=== PATIENT | female | born 1960 | race Two or more races ===

== ENCOUNTER 2017-04-21 16:18 | Emergency (ER) | payer OTHER ==
--- NOTE | 2017-04-21 17:59 | PHYS DOC ---
Past Medical History Past Medical History: Seizure Past Surgical History: Cholecystectomy, Hysterectomy, Tubal ligation Alcohol Use: Rarely Drug Use: None Adult General Chief Complaint Chief Complaint: HIP PAIN HPI HPI Patient is a 57 year old F who presents with left hip pain. Patient had a seizure today with a known history of epilepsy and fell out of the recliner chair while having the seizure. Patient states she has left hip pain secondary to that. Patient states that it is extremely painful to walk on. Patient sustained no other injuries. Patient only came the emergency room for the hip pain and Cipro for her to have seizures. Patient denies any other trauma. Review of Systems Review of Systems GEN: Denies fevers, chills, sweats HEENT: Denies blurred vision, sore throat CV: Denies chest pain RESP: Denies shortness of air, cough GI: Denies n/v/d NEURO: Denies confusion, dizziness MSK: Left hip pain Current Medications Current Medications Current Medications Medications (Trade) Dose Ordered Sig/Kolby Start Time Stop Time Status Last Admin Dose Admin Ibuprofen (Motrin) 800 mg 1X ONCE 04/21/17 18:45 04/21/17 18:46 DC 04/21/17 18:50 800 MG Allergies Allergies Allergies Coded Allergies Type Severity Reaction Last Updated Verified No Known Drug Allergies 04/21/17 No Physical Exam Physical Exam GEN.: No apparent distress. Alert and oriented. HEENT: Head is normocephalic, atraumatic NECK: Supple. LUNGS: CTAB. HEART: RRR, S1, S2 present. Peripheral pulses intact ABDOMEN: Soft, nontender. Positive bowel sounds. EXTREMITIES: Without any cyanosis. Tenderness palpation to the left hip with decreased range of motion secondary to pain no obvious deformity palpated NEUROLOGIC: Normal speech, normal tone PSYCHIATRIC: Normal affect, normal mood. SKIN: No ulcerations Current Patient Data Vital Signs Vital Signs Date Time Temp Pulse Resp B/P (MAP) Pulse Ox O2 Delivery O2 Flow Rate FiO2 04/21/17 18:24 81 126/71 (89) 97 Room Air 04/21/17 17:27 98.4 18 98.4 EKG EKG [] Radiology/Procedures Radiology/Procedures X-ray left hip no obvious fracture[] CT scan of the pelvis shows no acute fracture Course & Med Decision Making Course & Med Decision Making Pertinent Labs and Imaging studies reviewed. (See chart for details) Patient was seen and evaluated emergency x-ray of the pelvis was ordered X-ray of the pelvis was negative therefore a CT scan was ordered 2020: Patient states she can bear weight however it's painful and was updated on CT findings. Patient would like to go home does not feel she needs to be admitted to the hospital. Recommended 800 mg Motrin as needed for pain. MDM: After reviewing the chart, CC/HPI/PMH, physical exam, [radiological results], I do not believe the patient has a significant injury to her right hip warranting further workup and/or admission at this time. Patient stable for discharge. Patient does not want to be admitted hospital for pain management and feels like she wants to go home. Additional verbal discharge instructions were provided to the patient and that if symptoms get worse or any new symptoms arise that are worrisome to the patient she is to return to the emergency room immediately [] Dragon Disclaimer Dragon Disclaimer This electronic medical record was generated, in whole or in part, using a voice recognition dictation system. Departure Departure Impression: Primary Impression: Left hip pain Disposition: 01 HOME, SELF-CARE Condition: STABLE Referrals: MARIELA WHALEY MD (PCP) Patient Instructions: Hip Pain Additional Instructions: Please follow up with your family doctor next one to 2 days Scripts Ibuprofen (IBUPROFEN) 800 Mg Tablet 800 MG PO PRN Q8HRS Y for INFLAMMATION for 10 Days, #40 TAB Prov: XIANG MORENO DO 04/21/17 XIANG MORENO DO Apr 21, 2017 17:59
--- NOTE | 2017-04-21 18:38 | RAD ---
CT scan of pelvis without contrast 04/21/2017 CLINICAL HISTORY: Left hip pain post fall. TECHNIQUE: Unenhanced, contiguous, 0.625 mm axial sections were obtained through the pelvis to include both hips. 3 mm reconstructed sagittal and axial and coronal images were obtained. One or more of the following individualized dose reduction techniques were utilized for this study: 1. Automated exposure control. 2. Adjustment of the mA and/or kV according to patient size. 3. Use of iterative reconstruction technique. FINDINGS: No pelvic bone fracture is seen. Both hips are intact. Degenerative changes are seen involving the facet joints of the lower lumbar spine. Mild degenerative changes are seen involving both SI joints and both hips. Calcifications are seen within the pelvis consistent with phleboliths. No pelvic hematoma is seen. No free fluid is noted. IMPRESSION: No acute abnormality is seen. Electronically signed by: Jerad Brown MD (04/21/2017 6:35 PM) [facility]
[2017-04-21] MEDS ORDERED: IBUPROFEN 800 MG TABLET. PO ONE (18:45)
[2017-04-21 20:24] VITALS: BP 148/73
[2017-04-21] MEDS ORDERED: IBUP-1060 PO (20:30)
--- NOTE | 2017-04-22 10:38 | RAD ---
AP pelvis to include AP and lateral radiographs of the left hip 04/21/2017 Clinical history: Fall with left pelvic and hip pain. An AP digital radiograph of the pelvis to include both hips was obtained. AP and lateral digital radiographs of the left hip were obtained. No pelvic bone fracture is seen. Both hips are intact. Specifically no fracture or dislocation of the left hip is seen. Calcifications are seen within the pelvis consistent with phleboliths. Impression: No fracture or dislocation is seen.
[2017-04-22] MEDS ORDERED: CELE200C PO (15:23)
[2017-04-22] MEDS ORDERED: ACET500T68 PO (15:24)
[2017-04-22] MEDS ORDERED: ALEN70TA3 PO (15:29)
[2017-04-22] MEDS ORDERED: ATOR10TA60 PO (15:30)
[2017-04-22] MEDS ORDERED: PHEN200C PO (15:35)
[2017-04-25] MEDS ORDERED: HYDR-2762 PO (12:24)
[2017-04-25] MEDS ORDERED: POLY17PO3 PO (12:24)
[2017-04-25] MEDS ORDERED: METH500T7 PO (12:24)
[2017-04-25] MEDS ORDERED: PHEN100C PO (12:24)
== END 2017-04-21 20:50 | disposition home or self-care (01) ==
LOC: ER 16:18
DX: M25.552 Pain in left hip (principal); G40.909 Epilepsy, unspecified, not intractable, without status epilepticus; Z90.49 Acquired absence of other specified parts of digestive tract; Z90.710 Acquired absence of both cervix and uterus
CPT/HCPCS: 72192; 73502; 99284-25

== ENCOUNTER 2017-04-22 14:32 | Inpatient (IN) | payer OTHER ==
[~2017-04-22] VITALS: Ht 165.1 cm; Wt 80.7 kg
[~2017-04-22 14:32] MED LIST: IBUP-1060 PO
[2017-04-22 15:00] VITALS: BP 135/77
[2017-04-22] MEDS ORDERED: CELE200C PO (15:23)
[2017-04-22] MEDS ORDERED: ACET500T68 PO (15:24)
[2017-04-22] MEDS ORDERED: ALEN70TA3 PO (15:29)
[2017-04-22] MEDS ORDERED: ATOR10TA60 PO (15:30)
[2017-04-22] MEDS ORDERED: PHEN200C PO (15:35)
[2017-04-22] MEDS: HYDROcodone/APAP 7.5/325MG 1 TAB TABLET PO PRN ×2 (15:58→20:36)
[2017-04-22] MEDS: METHOCARBAMOL 500 MG TABLET PO PRN (18:39)
[2017-04-22 19:00] VITALS: BP 139/70
[2017-04-22 19:43] VITALS: BP 135/77
[2017-04-22] MEDS: ATORVASTATIN CALCIUM 10 MG TABLET. PO SCH (20:35)
[2017-04-22] MEDS: CELECOXIB 200 MG CAPSULE. PO SCH (20:35)
[2017-04-22 23:00] VITALS: BP 140/70
[2017-04-23 03:00] VITALS: BP 111/56
[2017-04-23 07:00] VITALS: BP 122/72
[2017-04-23] MEDS: HYDROcodone/APAP 7.5/325MG 1 TAB TABLET PO PRN ×4 (08:57→21:04)
[2017-04-23] MEDS: PHENYTOIN SODIUM EXTENDED 100 MG CAPSULE PO SCH (08:58)
[2017-04-23] MEDS: CELECOXIB 200 MG CAPSULE. PO SCH ×2 (08:58→21:03)
[2017-04-23 11:00] VITALS: BP 130/61
[2017-04-23] MEDS: METHOCARBAMOL 500 MG TABLET PO PRN ×2 (12:22→16:32)
[2017-04-23 14:51] LABS: BASO # 0.2 x10^3/uL (0.0-0.2); BASO % 1 % (0-3); EOS % 1 % (0-3); HEMATOCRIT 43.2 % (36.0-47.0); HEMOGLOBIN 14.6 g/dL (12.0-15.5); LYMPH # 33.6 x10^3/uL (1.0-4.8); LYMPH % 79 % (24-48); MEAN CORPUSCULAR HEMOGLOBIN 30 pg (25-35); MEAN CORPUSCULAR HGB CONC 34 g/dL (31-37); MEAN CORPUSCULAR VOLUME 90 fL (79-100); MONO % 4 % (0-9); NEUT % 16 % (31-73); PLATELET COUNT 220 x10^3/uL (140-400); RED CELL DISTRIBUTION WIDTH 13.8 % (11.5-14.5)
[2017-04-23 14:56] LABS: WHITE BLOOD COUNT 42.6 x10^3/uL (4.0-11.0)
[2017-04-23 15:06] VITALS: BP 117/74
[2017-04-23 15:08] LABS: ALBUMIN 3.7 g/dL (3.4-5.0); CALCIUM 8.8 mg/dL (8.5-10.1); CREATININE 0.8 mg/dL (0.6-1.0); GFR 73.9; POTASSIUM 3.8 mmol/L (3.5-5.1); TOTAL BILIRUBIN 0.3 mg/dL (0.2-1.0); TOTAL PROTEIN 7.3 g/dL (6.4-8.2)
--- NOTE | 2017-04-23 15:09 | PDOC2 ---
CONSULT Date of Consult Date of Consult DATE: 04/23/17 TIME: 14:51 Reason for Consult Reason for Consult: left hip pain Identification/Chief Complaint Chief Complaint left hip pain Problems: Source Source: Chart review, Patient History of Present Illness Reason for Visit: Ms. Dowell is a 57 year old patient admitted with left hip pain. She has a history of epilepsy and states she has been seizure-free for seven years until when she had a seizure. She states her daughter witnessed the seizure and states she did not fall or hit anything while seizing, but did seize for a total of 30 minutes. Her daughter described her seizure activity of being stiff as a board. She thinks this seizure was brought on by stress. Her left hip has been painful since the seizure, but pain is slowly improving. She is now able to ambulate with mild pain. 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 Past Medical History Cardiovascular: Hyperlipidemia CENTRAL NERVOUS SYSTEM: Seizure Past Surgical History Past Surgical History right breast mass removal x3 - benign Past Surgical History: Cholecystectomy, Tubal Ligation, Hysterectomy Family History Family History: Cancer, Diabetes, High Cholestrol, Hypertension Social History Quit (2006) ALCOHOL: none Drugs: None Lives: Alone (but states she will be moving in with her daughter soon) Current Medications Current Medications Current Medications Acetaminophen/ Hydrocodone Bitart (Lortab 7.5/325) 1 tab PRN Q4HRS PRN PO PAIN Last administered on 04/23/17 08:57; Start 04/22/17 at 15:30 Acetaminophen/ Hydrocodone Bitart (Lortab 7.5/325) 2 tab PRN Q4HRS PRN PO PAIN Last administered on 04/23/17 12:22; Start 04/22/17 at 15:30 Methocarbamol (Robaxin) 500 mg PRN TID PRN PO MUSCLE SPASMS Last administered on 04/23/17 12:22; Start 04/22/17 at 15:30 Atorvastatin Calcium (Lipitor) 10 mg HS PO Last administered on 04/22/17 20:35 ; Start 04/22/17 at 21:00 Celecoxib (CeleBREX) 200 mg BID PO Last administered on 04/23/17 08:58; Start 04/22/17 at 21:00 Phenytoin Sodium (Dilantin) 400 mg DAILY@1000 PO Last administered on t 08:58; Start 04/23/17 at 10:00 Active Scripts Active Ibuprofen 800 Mg Tablet 800 Mg PO PRN Q8HRS PRN 10 Days Reported Phenytek (Phenytoin Sodium Extended) 200 Mg Capsule 400 Mg PO DAILY10 Atorvastatin Calcium 10 Mg Tablet 10 Mg PO HS Fosamax (Alendronate Sodium) 70 Mg Tablet 1 Tab PO WEEKLY Acetaminophen 500 Mg Tablet 3 Tab PO Q4HRS Celebrex (Celecoxib) 200 Mg Capsule 200 Mg PO BID 30 Days Allergies Allergies: Coded Allergies: No Known Drug Allergies (Unverified , 04/21/17) Physical Exam General: Alert, Oriented X3, Cooperative, No acute distress HEENT: Atraumatic, EOMI Lungs: Normal air movement Heart: Regular rate Abdomen: Soft Extremities: No clubbing, No cyanosis, No edema, Normal pulses Skin: No rashes, No breakdown, No significant lesion Neuro: Normal speech, Sensation intact Psych/Mental Status: Mental status NL, Mood NL MUSCULOSKELETAL: Other (Upon inspection of left hip, there are no masses, skin lesions, or ecchymosis. There is tenderness to palpation over left gluteus philippe. No tenderenss over greater trochanter. No tenderness of lumbar spine. The left hip shows full active range of motion. There is mild pain more so with internal rotation than extenal rotation of the hip. Strength intact. Good dorsiflexion and plantarflexion with no evidence of neurovascular injury. Calf soft and nontender with negative Suki's sign. Peripheral pulses and light touch sensation intact. Neurovascularly intact. ) Vitals VITALS Vital Signs Date Time Temp Pulse Resp B/P (MAP) Pulse Ox O2 Delivery O2 Flow Rate FiO2 04/23/17 12:22 Room Air 04/23/17 11:00 98.1 58 18 130/61 (84) 95 98.1 Images Images Hip x-rays and CT were reviewed. There is no fracture or acute abnormality detected. Mild degenerative changes are seen of both hips and lower lumbar spine. Assessment/Plan Assessment/Plan I explained the seizure could have caused a muscle strain versus a flare of the hip osteoarthritis. Since hip pain is improving and she can now ambulate with minimal pain, suspicion of occult femoral neck fracture is very low. I recommended alternating heat/cold packs and physical therapy for strengthening. I explained Dr. Webster doesn't typically treat hips and recommended she followup with Dr. Bunch, who she is familiar with, outpatient for further followup of the left hip. Dr. Webster reviewed the patient's x-rays, CT, and chart and agrees with this plan. ASHLEY TORRES Apr 23, 2017 15:09
--- NOTE | 2017-04-23 15:29 | HP ---
ADMIT DATE: 04/22/2017 DATE OF SERVICE: 04/22/2017 CHIEF COMPLAINT: Hip pain. HISTORY OF PRESENT ILLNESS AND HOSPITAL COURSE: This patient is a 57-year-old female who has underlying seizure disorder, had a significant seizure 48 hours prior to admission. She came to the Emergency Room, was found to be stable, but having ongoing hip pain and having difficulty walking and caring for herself. She does live alone and admission was offered, but the patient declined and she was discharged to home for outpatient followup. Despite attempts to care for herself at home, she was unable to ambulate well and get from her bed to the bathroom safely and was having ongoing pain. Therefore, she was directly admitted to the hospital for further evaluation. The patient also related history that she had not had a seizure for over 7 years and is taking her seizure medication regularly. No Dilantin levels or labs were drawn on initial Emergency Room evaluation, they will be evaluated during hospital stay and Neurology consultation will be obtained. PAST MEDICAL HISTORY: Significant for: 1. Seizure disorder. 2. Polk palsy. 3. Hyperlipidemia. 4. Thyroiditis. 5. Osteopenia. PAST SURGICAL HISTORY: Significant for cholecystectomy, tubal ligation, partial hysterectomy and bladder mesh surgery. FAMILY HISTORY: The patient's mother is alive without significant medical issues. Father is alive and living with prostate cancer. She has a brother with heart disease. SOCIAL HISTORY: The patient is a former smoker that quit 15 years ago. The patient does not use alcohol. She is and single and lives alone, but has excellent support from her daughter. REVIEW OF SYSTEMS: The patient was in usual state of health until seizure, which apparently lasted approximately 30 minutes according to daughter, at which time they came directly to the Emergency Room. The patient's initial x-rays in the Emergency Room were negative including CAT scan of the pelvis as well as plain x-rays of the pelvis and hips. PHYSICAL EXAMINATION: GENERAL: This is a well-nourished, well-developed female in no apparent distress on my initial exam. HEENT: Benign. NECK: Supple, without JVD or bruit. CARDIAC: Regular rate and rhythm. LUNGS: Clear. ABDOMEN: Soft, nontender. EXTREMITIES: 2+ pulses without edema. NEUROLOGIC: Showed no unilateral findings. The patient had extreme difficulty getting out of chair and walking due to ongoing hip pain. ASSESSMENT: 1. Recurrent/primary seizure. 2. Severe hip strain and mobility deficit. 3. Underlying seizure disorder. PLAN: To proceed with PT and OT modalities, consult Physical Medicine for rehabilitation and consult Neurology for evaluation of new onset seizure. DEBBIE DUBOIS MD DR: SHE/edwin JOB#: [id number] / [id number]
[2017-04-23 17:03] LABS: % BLASTS 1 % (0-0); % EOS 4 % (0-5); PLT ESTIMATE ADEQUATE (ADEQUATE)
--- NOTE | 2017-04-23 17:16 | PDOC2 ---
NEUROLOGY CONSULT Date of Admission Date of Admission DATE: 04/23/17 TIME: 17:03 Reason for Consult Reason for Consult: IMPRESSION: Seizure. Leukocytosis, WBC 42.6, Lymph 78% HLD Thyroiditis, Hx Obesity RECOMMENDATIONS/PLAN: EEG Continue Dilantin 400 daily, check trough level. Treat medical diseases. Please consult hematology for elevated lymph counts. HISTORY OF THE PRESENT ILLNESS: 57-y-old female patient with HJx of seizure since age 16. She stated that she usually had a seizure every 2 to 3 months in the past described as GTC. She was treated with Dilantin and PB for several years then discontinued medical for a while. She has been taken Dilantin as monotherapy in the past 10 years and no seizures in the past 7 years. She said she has been under a lot of emotional stress selling her house, moving etc. She had a seizure described as LOC with shaking movements and [postictal state for about 30 minutes on 04/22/17 to be brought to [facility]. No seizures since in the hospital. She stated she bit her tongue , but no loss of control of urinary bladder. Past Medical History Cardiovascular: Hyperlipidemia CENTRAL NERVOUS SYSTEM: Seizure Past Surgical History right breast mass removal x3 - benign Past Surgical History: Cholecystectomy, Tubal Ligation, Hysterectomy Family History Cancer, Diabetes, HLD, Hypertension Social History Quit (2006) ALCOHOL: none Drugs: None Lives: but . Alone (but states she will be moving in with her daughter soon) ALLERGY: Reviewed. MEDICATIONS: Refer to [facility] REVIEW OF SYSTEMS: Constitutional: Obesity. Head: No traumatic brain or head injury. Skin: No edema, or rash. Ear: No infection. Eyes: No vision loss or color blindness. Nose: No bleeding or purulent discharges. Hearing: No hearing decrease. Neck: No injury. Breast: No history of cancer, masses,or discharges. Cardiac: HLD. Pulmonary: No COPD. GI: No GI ulcer, GI bleeding. Urinary/genital: UTI. Endocrinologic: Thyroiditis, obesity Skeletomuscular: No muscular atrophy, deformity Neurological: see HP. Psychiatric: Denies drug use/abuse. Otherwise, not -zawkw review of systems. PHYSICAL EXAMINATION: General appearance is in no acute distress. HEENT: Normocephalic and nontraumatic. Eyes, nose, ears, and throat are unremarkable. Neck is supple. No lymphadenopathy. No bruits are heard over the carotid artery. No crepitus. Cardiovascular: S1, S2, regular rate and rhythm. Pulmonary: Clear to auscultation bilaterally. Abdomen: Bowel sounds are positive. Abdomen is soft, nontender, and nondistended. Extremities: No rash, lesions, or edema. No restriction of range of motion NEUROLOGICAL EXAMINATION: Alert Oriented to time, place and person. PERRL. EOMI. CN: no focal findings. Muscle tone: within normal. Muscle strength: 5 DTR: 2 Plantar reflex: Flexor response bilaterally Gait: not examined in bed. Sensory exam: no abnormal findings. No cerebellar signs elicited. F-T-N test accurate. Current Medications Current Medications Current Medications Acetaminophen/ Hydrocodone Bitart (Lortab 7.5/325) 1 tab PRN Q4HRS PRN PO PAIN Last administered on 04/23/17 08:57; Start 04/22/17 at 15:30 Acetaminophen/ Hydrocodone Bitart (Lortab 7.5/325) 2 tab PRN Q4HRS PRN PO PAIN Last administered on 04/23/17 16:32; Start 04/22/17 at 15:30 Methocarbamol (Robaxin) 500 mg PRN TID PRN PO MUSCLE SPASMS Last administered on 04/23/17 16:32; Start 04/22/17 at 15:30 Atorvastatin Calcium (Lipitor) 10 mg HS PO Last administered on 04/22/17 20:35 ; Start 04/22/17 at 21:00 Celecoxib (CeleBREX) 200 mg BID PO Last administered on 04/23/17 08:58; Start 04/22/17 at 21:00 Phenytoin Sodium (Dilantin) 400 mg DAILY@1000 PO Last administered on 08:58; Start 04/23/17 at 10:00 Active Scripts Active Ibuprofen 800 Mg Tablet 800 Mg PO PRN Q8HRS PRN 10 Days Reported Phenytek (Phenytoin Sodium Extended) 200 Mg Capsule 400 Mg PO DAILY10 Atorvastatin Calcium 10 Mg Tablet 10 Mg PO HS Fosamax (Alendronate Sodium) 70 Mg Tablet 1 Tab PO WEEKLY Acetaminophen 500 Mg Tablet 3 Tab PO Q4HRS Celebrex (Celecoxib) 200 Mg Capsule 200 Mg PO BID 30 Days Allergies Allergies: Coded Allergies: No Known Drug Allergies (Unverified , 04/21/17) Vitals VITALS Vital Signs Date Time Temp Pulse Resp B/P (MAP) Pulse Ox O2 Delivery O2 Flow Rate FiO2 04/23/17 16:42 Room Air 04/23/17 15:06 98.1 67 18 117/74 (88) 97 98.1 Labs Labs Laboratory Tests Test 04/23/17 14:40 White Blood Count 42.6 x10^3/uL (4.0-11.0) Red Blood Count 4.80 x10^6/uL (3.50-5.40) Hemoglobin 14.6 g/dL (12.0-15.5) Hematocrit 43.2 % (36.0-47.0) Mean Corpuscular Volume 90 fL (79-100) Mean Corpuscular Hemoglobin 30 pg (25-35) Mean Corpuscular Hemoglobin Concent 34 g/dL (31-37) Red Cell Distribution Width 13.8 % (11.5-14.5) Platelet Count 220 x10^3/uL (140-400) Neutrophils (%) (Auto) 16 % (31-73) Lymphocytes (%) (Auto) 79 % (24-48) Monocytes (%) (Auto) 4 % (0-9) Eosinophils (%) (Auto) 1 % (0-3) Basophils (%) (Auto) 1 % (0-3) Neutrophils # (Auto) 6.8 x10^3uL (1.8-7.7) Lymphocytes # (Auto) 33.6 x10^3/uL (1.0-4.8) Monocytes # (Auto) 1.6 x10^3/uL (0.0-1.1) Eosinophils # (Auto) 0.4 x10^3/uL (0.0-0.7) Basophils # (Auto) 0.2 x10^3/uL (0.0-0.2) Segmented Neutrophils % 9 % (35-66) Lymphocytes % 75 % (24-48) Atypical Lymphocytes % (Manual) 10 % (0-0) Monocytes % 1 % (0-10) Eosinophils % 4 % (0-5) Blast Cells % (Manual) 1 % (0-0) Platelet Estimate Adequate (ADEQUATE) Sodium Level 142 mmol/L (136-145) Potassium Level 3.8 mmol/L (3.5-5.1) Chloride Level 106 mmol/L (98-107) Carbon Dioxide Level 27 mmol/L (21-32) Anion Gap 9 (6-14) Blood Urea Nitrogen 16 mg/dL (7-20) Creatinine 0.8 mg/dL (0.6-1.0) Estimated GFR (Cockcroft-Gault) 73.9 BUN/Creatinine Ratio 20 (6-20) Glucose Level 101 mg/dL (70-99) Calcium Level 8.8 mg/dL (8.5-10.1) Total Bilirubin 0.3 mg/dL (0.2-1.0) Aspartate Amino Transf (AST/SGOT) 20 U/L (15-37) Alanine Aminotransferase (ALT/SGPT) 31 U/L (14-59) Alkaline Phosphatase 162 U/L (46-116) Total Protein 7.3 g/dL (6.4-8.2) Albumin 3.7 g/dL (3.4-5.0) Albumin/Globulin Ratio 1.0 (1.0-1.7) Phenytoin (Dilantin) Level 7.5 mcg/mL (10.0-20.0) Phenytoin Last Dose Date 04/23/17 Phenytoin Last Dose Time 0900 Laboratory Tests Test 04/23/17 14:40 White Blood Count 42.6 x10^3/uL (4.0-11.0) Red Blood Count 4.80 x10^6/uL (3.50-5.40) Hemoglobin 14.6 g/dL (12.0-15.5) Hematocrit 43.2 % (36.0-47.0) Mean Corpuscular Volume 90 fL (79-100) Mean Corpuscular Hemoglobin 30 pg (25-35) Mean Corpuscular Hemoglobin Concent 34 g/dL (31-37) Red Cell Distribution Width 13.8 % (11.5-14.5) Platelet Count 220 x10^3/uL (140-400) Neutrophils (%) (Auto) 16 % (31-73) Lymphocytes (%) (Auto) 79 % (24-48) Monocytes (%) (Auto) 4 % (0-9) Eosinophils (%) (Auto) 1 % (0-3) Basophils (%) (Auto) 1 % (0-3) Neutrophils # (Auto) 6.8 x10^3uL (1.8-7.7) Lymphocytes # (Auto) 33.6 x10^3/uL (1.0-4.8) Monocytes # (Auto) 1.6 x10^3/uL (0.0-1.1) Eosinophils # (Auto) 0.4 x10^3/uL (0.0-0.7) Basophils # (Auto) 0.2 x10^3/uL (0.0-0.2) Segmented Neutrophils % 9 % (35-66) Lymphocytes % 75 % (24-48) Atypical Lymphocytes % (Manual) 10 % (0-0) Monocytes % 1 % (0-10) Eosinophils % 4 % (0-5) Blast Cells % (Manual) 1 % (0-0) Platelet Estimate Adequate (ADEQUATE) Sodium Level 142 mmol/L (136-145) Potassium Level 3.8 mmol/L (3.5-5.1) Chloride Level 106 mmol/L (98-107) Carbon Dioxide Level 27 mmol/L (21-32) Anion Gap 9 (6-14) Blood Urea Nitrogen 16 mg/dL (7-20) Creatinine 0.8 mg/dL (0.6-1.0) Estimated GFR (Cockcroft-Gault) 73.9 BUN/Creatinine Ratio 20 (6-20) Glucose Level 101 mg/dL (70-99) Calcium Level 8.8 mg/dL (8.5-10.1) Total Bilirubin 0.3 mg/dL (0.2-1.0) Aspartate Amino Transf (AST/SGOT) 20 U/L (15-37) Alanine Aminotransferase (ALT/SGPT) 31 U/L (14-59) Alkaline Phosphatase 162 U/L (46-116) Total Protein 7.3 g/dL (6.4-8.2) Albumin 3.7 g/dL (3.4-5.0) Albumin/Globulin Ratio 1.0 (1.0-1.7) Phenytoin (Dilantin) Level 7.5 mcg/mL (10.0-20.0) Phenytoin Last Dose Date 04/23/17 Phenytoin Last Dose Time 0900 KEATON DUNN MD Apr 23, 2017 17:16
[2017-04-23 19:00] VITALS: BP 126/75
[2017-04-23] MEDS: ATORVASTATIN CALCIUM 10 MG TABLET. PO SCH (21:03)
[2017-04-23 23:00] VITALS: BP 111/61
--- NOTE | 2017-04-23 23:50 | CONS ---
DATE OF CONSULTATION: 04/23/2017 MEDICAL ONCOLOGY CONSULTATION REPORT CONSULTATION REQUESTED BY: Debbie Paris M.D. REASON FOR CONSULTATION: Leukocytosis, concerning for CLL. HISTORY OF PRESENT ILLNESS: The patient is a 57-year-old female who has a history of seizure disorder and she had a seizure episode on 04/21/2017. She was evaluated in the Emergency Room and she was noted to be stable, but she has left hip pain and difficulty walking. She was admitted to the hospital on 04/22/2017. She has not had a seizure for 7 years prior to the current episode. Neurology consultation was obtained. Routine CBC on 04/23/2017 revealed a WBC of 42.6, hemoglobin 14.6 and a platelet count of 200,000. She had 79% lymphocytes, 10% atypical lymphocytes and 1% blasts cells; and hence, I was consulted for further evaluation of severe leukocytosis. Review of the old records indicates that her WBC count was normal on 05/31/2015 at 8.1. She denies fevers, chills or night sweats. No loss of weight or loss of appetite. No hematemesis, melena or hematochezia. No hemoptysis or hematuria. No history of lymphadenopathy. PAST MEDICAL HISTORY: Graves' disease, seizure disorder, Polk's palsy, hyperlipidemia and osteopenia. PAST SURGICAL HISTORY: Cholecystectomy, tubal ligation, partial hysterectomy and bladder mesh surgery. FAMILY HISTORY: Father has history of prostate cancer. SOCIAL HISTORY: She quit smoking in 2001. No alcohol abuse. She is and single and lives alone and she has good support from her daughter. REVIEW OF SYSTEMS: A 14-point review of system was performed. Pertinent positives are mentioned in the history of presenting illness. Rest of the system review is negative. PHYSICAL EXAMINATION: GENERAL APPEARANCE: The patient is a 57-year-old female who is in no acute cardiorespiratory distress. VITAL SIGNS: Blood pressure 117/74 and temperature 98.1. HEAD: Atraumatic, normocephalic. EYES: No icterus. NECK: Supple. CHEST: Bilaterally symmetrical. HEART: S1, S2 normal. ABDOMEN: Soft, nontender. No hepatosplenomegaly. CENTRAL NERVOUS SYSTEM: No focal deficits. SKIN: No rashes. PSYCHOLOGIC: Mood and affect are appropriate. MUSCULOSKELETAL: No joint effusions. LYMPHATICS: No lymphadenopathy. LABORATORY DATA: CBC on 04/23/2017 revealed a WBC of 42.6, hemoglobin 14.6, platelet count 220,000, MCV 90 with 79% lymphocytes and an absolute lymphocyte count of 33.6. There is also evidence of 10 % atypical lymphocytes and 1% blasts. IMPRESSION AND PLAN: 1. Leukocytosis with elevated absolute lymphocyte count, is concerning for chronic lymphocytic leukemia. In addition, she also has evidence of 1% blasts on manual differential count. I will proceed with bone marrow aspiration and biopsy to evaluate for leukemia. I discussed in detail with the patient and she understands and agrees with the plan. 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 If she develops stage 3-4 leukemia, then chemotherapy would be indicated. 2. Seizure disorder. I appreciate Neurology consultation. GELACIO MONTEZ MD DR: ANGELA/nts JOB#: [id number] / [id number] DEBBIE Brown MD MTDD
[2017-04-24] VITALS (17 sets, daily range): BP systolic 96–136; BP diastolic 63–78
[2017-04-24 08:10] LABS: BASO # 0.1 x10^3/uL (0.0-0.2); BASO % 0 % (0-3); EOS % 2 % (0-3); HEMATOCRIT 41.9 % (36.0-47.0); HEMOGLOBIN 13.8 g/dL (12.0-15.5); LYMPH # 38.8 x10^3/uL (1.0-4.8); LYMPH % 84 % (24-48); MEAN CORPUSCULAR HEMOGLOBIN 30 pg (25-35); MEAN CORPUSCULAR HGB CONC 33 g/dL (31-37); MEAN CORPUSCULAR VOLUME 92 fL (79-100); MONO % 3 % (0-9); NEUT % 12 % (31-73); PLATELET COUNT 198 x10^3/uL (140-400); RED BLOOD COUNT 4.58 x10^6/uL (3.50-5.40); RED CELL DISTRIBUTION WIDTH 14.4 % (11.5-14.5)
--- NOTE | 2017-04-24 08:10 | CONS ---
DATE OF CONSULTATION: 04/23/2017 LOCATION: She is in room 418. ATTENDING PHYSICIAN: Dr. Wilfredo Paris. The patient was seen at the request of Dr. Paris for rehab evaluation. HISTORY OF PRESENT ILLNESS: This is a 57-year-old female with underlying seizure disorder, no seizures for the last 10 years or so. She had been on Dilantin. Before that, she used to take 2 medications, but for the last 7 years, she had been taking only Dilantin without any seizures and she sustained a seizure disorder about 48 hours prior to her admission on 04/22/2017. She was seen in the Emergency Room after having some hip area pain and difficulty walking and caring for herself and she lives alone. Admission was offered, but the patient declined and was discharged to home for outpatient followup. Despite trying to take care of herself, she was unable to walk and get out of bed, go to the bathroom safely and having ongoing left hip area pain. She was admitted for further evaluation and treatment. She had radiological studies including CT scan of the pelvis, which failed to reveal any acute abnormalities except some degenerative changes in the sacroiliac joint and early degenerative changes in both hips. The patient denies any lower back or hip area pain prior to the onset of present problem. PAST MEDICAL HISTORY: The patient had Polk's palsy, hyperlipidemia, thyroiditis and osteopenia. PAST SURGICAL HISTORY: Status post cholecystectomy, tubal ligation, partial hysterectomy and bladder mesh surgery. The patient has been working on a regular basis at Dr. Paris's office. FAMILY HISTORY: The patient had some problem with her father with carcinoma of prostate, brother had heart disease. SOCIAL HISTORY: The patient quit smoking about 15 years ago. She denies any tingling or numbness sensation in the extremities or any weakness in the extremities. The patient lives alone, had steps to manage and she gets good support from her daughter who lives in this area. The patient was also noted with elevated white cell count and being evaluated for chronic lymphocytic leukemia by Dr. Kessler, oncologist. PHYSICAL EXAMINATION: Today revealed a middle-aged female. She is alert, oriented to time, place, person and circumstance and she is pleasant during the examination. She moves all 4 extremities voluntarily where she had 4+/5 grade muscle strength. Deep tendon reflexes are 2+ and symmetrical and she had equal perception of touch and pinprick sensation bilaterally. She had localized tenderness to palpation over left sacroiliac joint area and straight leg raising test is negative bilaterally. Lower back pain reproduced by resistive hip abduction. She had some limitation of external rotation at both hip joints and she had mild crepitus on range of motion on both knee joints without any obvious knee joint effusion. I have not tested her ambulation skills at this time, but the patient had a physical therapy saw her today and she is independent with bed mobility and transfers, sit to stand using a roller walker and she walked with a contact guard assistance using a roller walker for 250 feet with somewhat antalgic gait, slow zachary, short step length. Her skin is intact at this time. ASSESSMENT: A middle-aged female with seizure disorder with recent seizure and sprain involving lumbosacral spine, mainly left sacroiliac joint area without any clinical evidence of ongoing lumbar radiculopathy, mild degenerative joint disease changes as per x-rays of both hips and degenerative joint disease of her knees. The patient is being evaluated for elevated white cell count to rule out chronic lymphocytic leukemia. RECOMMENDATION: To try physical modalities, to consider injecting painful left sacroiliac joint if the pain persists. If no contraindications, she may benefit from nonsteroidal anti-inflammatory medication. Dr. Paris, I appreciate asking me to participate in the care of this interesting patient. I will be glad to follow her with you as needed for her rehabilitation. MANOJ MONZON MD DR: LINDA/edwin JOB#: [id number] / [id number]
[2017-04-24 08:12] LABS: WHITE BLOOD COUNT 46.3 x10^3/uL (4.0-11.0)
[2017-04-24] MEDS ORDERED: LIDOCAINE 1% / SOD BICARB 8.4% 20 ML VIAL. IJ ONE ×2 (08:48→09:15)
[2017-04-24] MEDS ORDERED: MIDAZOLAM HCL/PF 5 MG/5 ML VIAL. ONE (08:51)
[2017-04-24] MEDS ORDERED: FLUMAZENIL 0.5 MG/5 ML VIAL. IV ONE (08:52)
[2017-04-24] MEDS ORDERED: NALOXONE 0.4 MG/ML VIAL. ONE (08:52)
[2017-04-24] MEDS ORDERED: fentaNYL PF VIAL 250 MCG/5 ML VIAL ONE (08:52)
--- NOTE | 2017-04-24 08:55 | PDOC ---
PROGRESS NOTES Subjective Subjective c/c - f/u of Leukocytosis ROS - no headache Objective Objective Vital Signs Date Time Temp Pulse Resp B/P (MAP) Pulse Ox O2 Delivery O2 Flow Rate FiO2 04/24/17 03:00 97.9 64 18 110/64 (79) 98 Room Air 97.9 Physical Exam Heart: Normal S1, Normal S2 General: Alert, Oriented X3 Lungs: Clear to auscultation Neuro: Normal speech Psych/Mental Status: Mental status NL Assessment Assessment IMPRESSION AND PLAN: 1. Leukocytosis with elevated absolute lymphocyte count on 04/23/17 with WBC 42.6, is concerning for chronic lymphocytic leukemia. In addition, she also has evidence of 1% blasts on manual differential count. I will proceed with bone marrow aspiration and biopsy 04/24/17 to evaluate for leukemia. I discussed in detail with the patient and she understands and agrees with the plan. 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 2. Seizure disorder. I appreciate Neurology consultation. I d/w RN Comment Review of Relevant I have reviewed the following items danielle (where applicable) has been applied. Labs Laboratory Tests Test 04/23/17 14:40 04/24/17 05:05 White Blood Count 42.6 x10^3/uL (4.0-11.0) 46.3 x10^3/uL (4.0-11.0) Red Blood Count 4.80 x10^6/uL (3.50-5.40) 4.58 x10^6/uL (3.50-5.40) Hemoglobin 14.6 g/dL (12.0-15.5) 13.8 g/dL (12.0-15.5) Hematocrit 43.2 % (36.0-47.0) 41.9 % (36.0-47.0) Mean Corpuscular Volume 90 fL (79-100) 92 fL (79-100) Mean Corpuscular Hemoglobin 30 pg (25-35) 30 pg (25-35) Mean Corpuscular Hemoglobin Concent 34 g/dL (31-37) 33 g/dL (31-37) Red Cell Distribution Width 13.8 % (11.5-14.5) 14.4 % (11.5-14.5) Platelet Count 220 x10^3/uL (140-400) 198 x10^3/uL (140-400) Neutrophils (%) (Auto) 16 % (31-73) 12 % (31-73) Lymphocytes (%) (Auto) 79 % (24-48) 84 % (24-48) Monocytes (%) (Auto) 4 % (0-9) 3 % (0-9) Eosinophils (%) (Auto) 1 % (0-3) 2 % (0-3) Basophils (%) (Auto) 1 % (0-3) 0 % (0-3) Neutrophils # (Auto) 6.8 x10^3uL (1.8-7.7) 5.4 x10^3uL (1.8-7.7) Lymphocytes # (Auto) 33.6 x10^3/uL (1.0-4.8) 38.8 x10^3/uL (1.0-4.8) Monocytes # (Auto) 1.6 x10^3/uL (0.0-1.1) 1.2 x10^3/uL (0.0-1.1) Eosinophils # (Auto) 0.4 x10^3/uL (0.0-0.7) 0.7 x10^3/uL (0.0-0.7) Basophils # (Auto) 0.2 x10^3/uL (0.0-0.2) 0.1 x10^3/uL (0.0-0.2) Segmented Neutrophils % 9 % (35-66) Lymphocytes % 75 % (24-48) Atypical Lymphocytes % (Manual) 10 % (0-0) Monocytes % 1 % (0-10) Eosinophils % 4 % (0-5) Blast Cells % (Manual) 1 % (0-0) Platelet Estimate Adequate (ADEQUATE) Erythrocyte Sedimentation Rate 13 (0-25) Sodium Level 142 mmol/L (136-145) Potassium Level 3.8 mmol/L (3.5-5.1) Chloride Level 106 mmol/L (98-107) Carbon Dioxide Level 27 mmol/L (21-32) Anion Gap 9 (6-14) Blood Urea Nitrogen 16 mg/dL (7-20) Creatinine 0.8 mg/dL (0.6-1.0) Estimated GFR (Cockcroft-Gault) 73.9 BUN/Creatinine Ratio 20 (6-20) Glucose Level 101 mg/dL (70-99) Calcium Level 8.8 mg/dL (8.5-10.1) Total Bilirubin 0.3 mg/dL (0.2-1.0) Aspartate Amino Transf (AST/SGOT) 20 U/L (15-37) Alanine Aminotransferase (ALT/SGPT) 31 U/L (14-59) Alkaline Phosphatase 162 U/L (46-116) Total Protein 7.3 g/dL (6.4-8.2) Albumin 3.7 g/dL (3.4-5.0) Albumin/Globulin Ratio 1.0 (1.0-1.7) Phenytoin (Dilantin) Level 7.5 mcg/mL (10.0-20.0) 4.8 mcg/mL (10.0-20.0) Phenytoin Last Dose Date 04/23/17 04/23/17 Phenytoin Last Dose Time 0900 1000 Laboratory Tests Test 04/23/17 14:40 04/24/17 05:05 White Blood Count 42.6 x10^3/uL (4.0-11.0) 46.3 x10^3/uL (4.0-11.0) Red Blood Count 4.80 x10^6/uL (3.50-5.40) 4.58 x10^6/uL (3.50-5.40) Hemoglobin 14.6 g/dL (12.0-15.5) 13.8 g/dL (12.0-15.5) Hematocrit 43.2 % (36.0-47.0) 41.9 % (36.0-47.0) Mean Corpuscular Volume 90 fL (79-100) 92 fL (79-100) Mean Corpuscular Hemoglobin 30 pg (25-35) 30 pg (25-35) Mean Corpuscular Hemoglobin Concent 34 g/dL (31-37) 33 g/dL (31-37) Red Cell Distribution Width 13.8 % (11.5-14.5) 14.4 % (11.5-14.5) Platelet Count 220 x10^3/uL (140-400) 198 x10^3/uL (140-400) Neutrophils (%) (Auto) 16 % (31-73) 12 % (31-73) Lymphocytes (%) (Auto) 79 % (24-48) 84 % (24-48) Monocytes (%) (Auto) 4 % (0-9) 3 % (0-9) Eosinophils (%) (Auto) 1 % (0-3) 2 % (0-3) Basophils (%) (Auto) 1 % (0-3) 0 % (0-3) Neutrophils # (Auto) 6.8 x10^3uL (1.8-7.7) 5.4 x10^3uL (1.8-7.7) Lymphocytes # (Auto) 33.6 x10^3/uL (1.0-4.8) 38.8 x10^3/uL (1.0-4.8) Monocytes # (Auto) 1.6 x10^3/uL (0.0-1.1) 1.2 x10^3/uL (0.0-1.1) Eosinophils # (Auto) 0.4 x10^3/uL (0.0-0.7) 0.7 x10^3/uL (0.0-0.7) Basophils # (Auto) 0.2 x10^3/uL (0.0-0.2) 0.1 x10^3/uL (0.0-0.2) Segmented Neutrophils % 9 % (35-66) Lymphocytes % 75 % (24-48) Atypical Lymphocytes % (Manual) 10 % (0-0) Monocytes % 1 % (0-10) Eosinophils % 4 % (0-5) Blast Cells % (Manual) 1 % (0-0) Platelet Estimate Adequate (ADEQUATE) Erythrocyte Sedimentation Rate 13 (0-25) Sodium Level 142 mmol/L (136-145) Potassium Level 3.8 mmol/L (3.5-5.1) Chloride Level 106 mmol/L (98-107) Carbon Dioxide Level 27 mmol/L (21-32) Anion Gap 9 (6-14) Blood Urea Nitrogen 16 mg/dL (7-20) Creatinine 0.8 mg/dL (0.6-1.0) Estimated GFR (Cockcroft-Gault) 73.9 BUN/Creatinine Ratio 20 (6-20) Glucose Level 101 mg/dL (70-99) Calcium Level 8.8 mg/dL (8.5-10.1) Total Bilirubin 0.3 mg/dL (0.2-1.0) Aspartate Amino Transf (AST/SGOT) 20 U/L (15-37) Alanine Aminotransferase (ALT/SGPT) 31 U/L (14-59) Alkaline Phosphatase 162 U/L (46-116) Total Protein 7.3 g/dL (6.4-8.2) Albumin 3.7 g/dL (3.4-5.0) Albumin/Globulin Ratio 1.0 (1.0-1.7) Phenytoin (Dilantin) Level 7.5 mcg/mL (10.0-20.0) 4.8 mcg/mL (10.0-20.0) Phenytoin Last Dose Date 04/23/17 04/23/17 Phenytoin Last Dose Time 0900 1000 Medications Current Medications Acetaminophen/ Hydrocodone Bitart (Lortab 7.5/325) 1 tab PRN Q4HRS PRN PO PAIN Last administered on 04/23/17 08:57; Start 04/22/17 at 15:30 Acetaminophen/ Hydrocodone Bitart (Lortab 7.5/325) 2 tab PRN Q4HRS PRN PO PAIN Last administered on 04/23/17 21:04; Start 04/22/17 at 15:30 Methocarbamol (Robaxin) 500 mg PRN TID PRN PO MUSCLE SPASMS Last administered on 04/23/17 16:32; Start 04/22/17 at 15:30 Atorvastatin Calcium (Lipitor) 10 mg HS PO Last administered on 04/23/17 21:03 ; Start 04/22/17 at 21:00 Celecoxib (CeleBREX) 200 mg BID PO Last administered on 04/23/17 21:03; Start 04/22/17 at 21:00 Phenytoin Sodium (Dilantin) 400 mg DAILY@1000 PO Last administered on 08:58; Start 04/23/17 at 10:00 Lidocaine/Sodium Bicarbonate (Buffered Lidocaine 1%) 20 ml STK-MED ONCE IJ ; Start 04/24/17 at 08:48; Stop 04/24/17 at 08:49; Status DC Midazolam HCl (Versed) 5 mg STK-MED ONCE .ROUTE ; Start 04/24/17 at 08:51; Stop 04/24/17 at 08:52; Status DC Fentanyl Citrate (Fentanyl 5ml Vial) 250 mcg STK-MED ONCE .ROUTE ; Start at 08:52; Stop 04/24/17 at 08:53; Status DC Flumazenil (Romazicon) 0.5 mg STK-MED ONCE IV ; Start 04/24/17 at 08:52; Stop at 08:53; Status DC Naloxone HCl (Narcan) 0.4 mg STK-MED ONCE .ROUTE ; Start 04/24/17 at 08:52; Stop 04/24/17 at 08:53; Status DC Active Scripts Active Ibuprofen 800 Mg Tablet 800 Mg PO PRN Q8HRS PRN 10 Days Reported Phenytek (Phenytoin Sodium Extended) 200 Mg Capsule 400 Mg PO DAILY10 Atorvastatin Calcium 10 Mg Tablet 10 Mg PO HS Fosamax (Alendronate Sodium) 70 Mg Tablet 1 Tab PO WEEKLY Acetaminophen 500 Mg Tablet 3 Tab PO Q4HRS Celebrex (Celecoxib) 200 Mg Capsule 200 Mg PO BID 30 Days Vitals/I & O Vital Sign - Last 24 Hours 04/23/17 04/23/17 04/23/17 04/23/17 08:57 11:00 11:25 12:22 Temp 98.1 98.1 Pulse 58 Resp 18 B/P (MAP) 130/61 (84) Pulse Ox 95 O2 Delivery Room Air Room Air Room Air Room Air 04/23/17 04/23/17 04/23/17 04/23/17 15:06 16:32 19:00 19:28 Temp 98.1 98.6 98.1 98.6 Pulse 67 78 Resp 18 20 B/P (MAP) 117/74 (88) 126/75 (92) Pulse Ox 97 94 O2 Delivery Room Air Room Air Room Air Room Air 04/23/17 04/23/17 04/24/17 21:04 23:00 03:00 Temp 98.3 97.9 98.3 97.9 Pulse 68 64 Resp 18 20 18 B/P (MAP) 111/61 (78) 110/64 (79) Pulse Ox 95 98 O2 Delivery Room Air Room Air Room Air GELACIO MONTEZ MD Apr 24, 2017 08:55
[2017-04-24 09:05] LABS: PROTHROMBIN TIME PATIENT 12.8 SEC (11.7-14.0)
[2017-04-24] MEDS ORDERED: fentaNYL PF VIAL 250 MCG/5 ML VIAL IV ONE (09:15)
[2017-04-24] MEDS ORDERED: MIDAZOLAM HCL/PF 5 MG/5 ML VIAL. IV ONE (09:15)
[2017-04-24] MEDS: CELECOXIB 200 MG CAPSULE. PO SCH ×2 (10:38→20:19)
[2017-04-24] MEDS ORDERED: PHENYTOIN SODIUM EXTENDED 100 MG CAPSULE PO ONE ×2 (10:45→20:15)
[2017-04-24 11:28] LABS: BARBITURATES NEG (NEG); BENZODIAZEPINES NEG (NEG); CANNABINOIDS NEG (NEG); COCAINE NEG (NEG); METHADONE NEG (NEG); OPIATES POS (NEG); PHENCYCLIDINE NEG (NEG)
--- NOTE | 2017-04-24 13:14 | PDOC ---
PROGRESS NOTES Subjective Subjective Patient feels better. New finding of high WBC yesterday consistent with CLL. Bone marrow done and pending, EEG done and pending, Patient still having difficulty with mobility. No BM this hospital stay likely do to pain meds. Dilantin level low. Objective Objective Vital Signs Date Time Temp Pulse Resp B/P (MAP) Pulse Ox O2 Delivery O2 Flow Rate FiO2 04/24/17 11:15 98.1 70 16 124/73 (90) 96 Room Air 98.1 04/24/17 09:26 2.0 Physical Exam Abdomen: Normal bowel sounds Heart: Regular rate Extremities: No edema General: Alert Lungs: Clear to auscultation Assessment Assessment Seizure disorder CLL suspected - NEW finding Mobility deficit Low back strain and hip contusion Plan Plan of Care Continue PT/OT Continue neuro and Heme/onc eval. Cathartic Meds Increase Dilantin Comment Review of Relevant I have reviewed the following items danielle (where applicable) has been applied. Labs Laboratory Tests Test 04/23/17 14:40 04/24/17 05:05 04/24/17 08:15 04/24/17 10:55 White Blood Count 42.6 x10^3/uL (4.0-11.0) 46.3 x10^3/uL (4.0-11.0) Red Blood Count 4.80 x10^6/uL (3.50-5.40) 4.58 x10^6/uL (3.50-5.40) Hemoglobin 14.6 g/dL (12.0-15.5) 13.8 g/dL (12.0-15.5) Hematocrit 43.2 % (36.0-47.0) 41.9 % (36.0-47.0) Mean Corpuscular Volume 90 fL (79-100) 92 fL (79-100) Mean Corpuscular Hemoglobin 30 pg (25-35) 30 pg (25-35) Mean Corpuscular Hemoglobin Concent 34 g/dL (31-37) 33 g/dL (31-37) Red Cell Distribution Width 13.8 % (11.5-14.5) 14.4 % (11.5-14.5) Platelet Count 220 x10^3/uL (140-400) 198 x10^3/uL (140-400) Neutrophils (%) (Auto) 16 % (31-73) 12 % (31-73) Lymphocytes (%) (Auto) 79 % (24-48) 84 % (24-48) Monocytes (%) (Auto) 4 % (0-9) 3 % (0-9) Eosinophils (%) (Auto) 1 % (0-3) 2 % (0-3) Basophils (%) (Auto) 1 % (0-3) 0 % (0-3) Neutrophils # (Auto) 6.8 x10^3uL (1.8-7.7) 5.4 x10^3uL (1.8-7.7) Lymphocytes # (Auto) 33.6 x10^3/uL (1.0-4.8) 38.8 x10^3/uL (1.0-4.8) Monocytes # (Auto) 1.6 x10^3/uL (0.0-1.1) 1.2 x10^3/uL (0.0-1.1) Eosinophils # (Auto) 0.4 x10^3/uL (0.0-0.7) 0.7 x10^3/uL (0.0-0.7) Basophils # (Auto) 0.2 x10^3/uL (0.0-0.2) 0.1 x10^3/uL (0.0-0.2) Segmented Neutrophils % 9 % (35-66) Lymphocytes % 75 % (24-48) Atypical Lymphocytes % (Manual) 10 % (0-0) Monocytes % 1 % (0-10) Eosinophils % 4 % (0-5) Blast Cells % (Manual) 1 % (0-0) Platelet Estimate Adequate (ADEQUATE) Erythrocyte Sedimentation Rate 13 (0-25) Sodium Level 142 mmol/L (136-145) Potassium Level 3.8 mmol/L (3.5-5.1) Chloride Level 106 mmol/L (98-107) Carbon Dioxide Level 27 mmol/L (21-32) Anion Gap 9 (6-14) Blood Urea Nitrogen 16 mg/dL (7-20) Creatinine 0.8 mg/dL (0.6-1.0) Estimated GFR (Cockcroft-Gault) 73.9 BUN/Creatinine Ratio 20 (6-20) Glucose Level 101 mg/dL (70-99) Calcium Level 8.8 mg/dL (8.5-10.1) Total Bilirubin 0.3 mg/dL (0.2-1.0) Aspartate Amino Transf (AST/SGOT) 20 U/L (15-37) Alanine Aminotransferase (ALT/SGPT) 31 U/L (14-59) Alkaline Phosphatase 162 U/L (46-116) Total Protein 7.3 g/dL (6.4-8.2) Albumin 3.7 g/dL (3.4-5.0) Albumin/Globulin Ratio 1.0 (1.0-1.7) Phenytoin (Dilantin) Level 7.5 mcg/mL (10.0-20.0) 4.8 mcg/mL (10.0-20.0) Phenytoin Last Dose Date 04/23/17 04/23/17 Phenytoin Last Dose Time 0900 1000 Prothrombin Time 12.8 SEC (11.7-14.0) Prothromb Time International Ratio 1.0 (0.8-1.1) Activated Partial Thromboplast Time 29 SEC (24-38) Urine Opiates Screen Pos (NEG) Urine Methadone Screen Neg (NEG) Urine Barbiturates Neg (NEG) Urine Phencyclidine Screen Neg (NEG) Urine Amphetamine/Methamphetamine Neg (NEG) Urine Benzodiazepines Screen Neg (NEG) Urine Cocaine Screen Neg (NEG) Urine Cannabinoids Screen Neg (NEG) Urine Ethyl Alcohol Neg (NEG) Laboratory Tests Test 04/23/17 14:40 04/24/17 05:05 04/24/17 08:15 04/24/17 10:55 White Blood Count 42.6 x10^3/uL (4.0-11.0) 46.3 x10^3/uL (4.0-11.0) Red Blood Count 4.80 x10^6/uL (3.50-5.40) 4.58 x10^6/uL (3.50-5.40) Hemoglobin 14.6 g/dL (12.0-15.5) 13.8 g/dL (12.0-15.5) Hematocrit 43.2 % (36.0-47.0) 41.9 % (36.0-47.0) Mean Corpuscular Volume 90 fL (79-100) 92 fL (79-100) Mean Corpuscular Hemoglobin 30 pg (25-35) 30 pg (25-35) Mean Corpuscular Hemoglobin Concent 34 g/dL (31-37) 33 g/dL (31-37) Red Cell Distribution Width 13.8 % (11.5-14.5) 14.4 % (11.5-14.5) Platelet Count 220 x10^3/uL (140-400) 198 x10^3/uL (140-400) Neutrophils (%) (Auto) 16 % (31-73) 12 % (31-73) Lymphocytes (%) (Auto) 79 % (24-48) 84 % (24-48) Monocytes (%) (Auto) 4 % (0-9) 3 % (0-9) Eosinophils (%) (Auto) 1 % (0-3) 2 % (0-3) Basophils (%) (Auto) 1 % (0-3) 0 % (0-3) Neutrophils # (Auto) 6.8 x10^3uL (1.8-7.7) 5.4 x10^3uL (1.8-7.7) Lymphocytes # (Auto) 33.6 x10^3/uL (1.0-4.8) 38.8 x10^3/uL (1.0-4.8) Monocytes # (Auto) 1.6 x10^3/uL (0.0-1.1) 1.2 x10^3/uL (0.0-1.1) Eosinophils # (Auto) 0.4 x10^3/uL (0.0-0.7) 0.7 x10^3/uL (0.0-0.7) Basophils # (Auto) 0.2 x10^3/uL (0.0-0.2) 0.1 x10^3/uL (0.0-0.2) Segmented Neutrophils % 9 % (35-66) Lymphocytes % 75 % (24-48) Atypical Lymphocytes % (Manual) 10 % (0-0) Monocytes % 1 % (0-10) Eosinophils % 4 % (0-5) Blast Cells % (Manual) 1 % (0-0) Platelet Estimate Adequate (ADEQUATE) Erythrocyte Sedimentation Rate 13 (0-25) Sodium Level 142 mmol/L (136-145) Potassium Level 3.8 mmol/L (3.5-5.1) Chloride Level 106 mmol/L (98-107) Carbon Dioxide Level 27 mmol/L (21-32) Anion Gap 9 (6-14) Blood Urea Nitrogen 16 mg/dL (7-20) Creatinine 0.8 mg/dL (0.6-1.0) Estimated GFR (Cockcroft-Gault) 73.9 BUN/Creatinine Ratio 20 (6-20) Glucose Level 101 mg/dL (70-99) Calcium Level 8.8 mg/dL (8.5-10.1) Total Bilirubin 0.3 mg/dL (0.2-1.0) Aspartate Amino Transf (AST/SGOT) 20 U/L (15-37) Alanine Aminotransferase (ALT/SGPT) 31 U/L (14-59) Alkaline Phosphatase 162 U/L (46-116) Total Protein 7.3 g/dL (6.4-8.2) Albumin 3.7 g/dL (3.4-5.0) Albumin/Globulin Ratio 1.0 (1.0-1.7) Phenytoin (Dilantin) Level 7.5 mcg/mL (10.0-20.0) 4.8 mcg/mL (10.0-20.0) Phenytoin Last Dose Date 04/23/17 04/23/17 Phenytoin Last Dose Time 0900 1000 Prothrombin Time 12.8 SEC (11.7-14.0) Prothromb Time International Ratio 1.0 (0.8-1.1) Activated Partial Thromboplast Time 29 SEC (24-38) Urine Opiates Screen Pos (NEG) Urine Methadone Screen Neg (NEG) Urine Barbiturates Neg (NEG) Urine Phencyclidine Screen Neg (NEG) Urine Amphetamine/Methamphetamine Neg (NEG) Urine Benzodiazepines Screen Neg (NEG) Urine Cocaine Screen Neg (NEG) Urine Cannabinoids Screen Neg (NEG) Urine Ethyl Alcohol Neg (NEG) Medications Current Medications Acetaminophen/ Hydrocodone Bitart (Lortab 7.5/325) 1 tab PRN Q4HRS PRN PO PAIN Last administered on 04/23/17t 08:57; Start 04/22/17 at 15:30 Acetaminophen/ Hydrocodone Bitart (Lortab 7.5/325) 2 tab PRN Q4HRS PRN PO PAIN Last administered on 04/23/17 21:04; Start 04/22/17 at 15:30 Methocarbamol (Robaxin) 500 mg PRN TID PRN PO MUSCLE SPASMS Last administered on 04/23/17 16:32; Start 04/22/17 at 15:30 Atorvastatin Calcium (Lipitor) 10 mg HS PO Last administered on 04/23/17 21:03 ; Start 04/22/17 at 21:00 Celecoxib (CeleBREX) 200 mg BID PO Last administered on 04/24/17 10:38; Start 04/22/17 at 21:00 Phenytoin Sodium (Dilantin) 400 mg DAILY@1000 PO Last administered on 08:58; Start 04/23/17 at 10:00 Lidocaine/Sodium Bicarbonate (Buffered Lidocaine 1%) 20 ml STK-MED ONCE IJ ; Start 04/24/17 at 08:48; Stop 04/24/17 at 08:49; Status DC Midazolam HCl (Versed) 5 mg STK-MED ONCE .ROUTE ; Start 04/24/17 at 08:51; Stop 04/24/17 at 08:52; Status DC Fentanyl Citrate (Fentanyl 5ml Vial) 250 mcg STK-MED ONCE .ROUTE ; Start at 08:52; Stop 04/24/17 at 08:53; Status DC Flumazenil (Romazicon) 0.5 mg STK-MED ONCE IV ; Start 04/24/17 at 08:52; Stop at 08:53; Status DC Naloxone HCl (Narcan) 0.4 mg STK-MED ONCE .ROUTE ; Start 04/24/17 at 08:52; Stop 04/24/17 at 08:53; Status DC Lidocaine/Sodium Bicarbonate (Buffered Lidocaine 1%) 20 ml 1X ONCE IJ Last administered on 04/24/17 09:31; Start 04/24/17 at 09:15; Stop 04/24/17 at 09:16 ; Status DC Midazolam HCl (Versed) 5 mg 1X ONCE IV Last administered on 04/24/17 09:30; Start 04/24/17 at 09:15; Stop 04/24/17 at 09:16; Status DC Fentanyl Citrate (Fentanyl 5ml Vial) 250 mcg 1X ONCE IV Last administered on 9 /26/17at 09:31; Start 04/24/17 at 09:15; Stop 04/24/17 at 09:16; Status DC Phenytoin Sodium (Dilantin) 300 mg 1X ONCE PO ; Start 04/24/17 at 10:45; Stop 04/24/17 at 10:46; Status DC Active Scripts Active Ibuprofen 800 Mg Tablet 800 Mg PO PRN Q8HRS PRN 10 Days Reported Phenytek (Phenytoin Sodium Extended) 200 Mg Capsule 400 Mg PO DAILY10 Atorvastatin Calcium 10 Mg Tablet 10 Mg PO HS Fosamax (Alendronate Sodium) 70 Mg Tablet 1 Tab PO WEEKLY Acetaminophen 500 Mg Tablet 3 Tab PO Q4HRS Celebrex (Celecoxib) 200 Mg Capsule 200 Mg PO BID 30 Days Vitals/I & O Vital Sign - Last 24 Hours 04/23/17 04/23/17 04/23/17 04/23/17 15:06 16:32 19:00 19:28 Temp 98.1 98.6 98.1 98.6 Pulse 67 78 Resp 18 20 B/P (MAP) 117/74 (88) 126/75 (92) Pulse Ox 97 94 O2 Delivery Room Air Room Air Room Air Room Air 04/23/17 04/23/17 04/24/17 04/24/17 21:04 23:00 03:00 07:00 Temp 98.3 97.9 98.1 98.3 97.9 98.1 Pulse 68 64 76 Resp 18 20 18 18 B/P (MAP) 111/61 (78) 110/64 (79) 136/75 (95) Pulse Ox 95 98 94 O2 Delivery Room Air Room Air Room Air Room Air 04/24/17 04/24/17 04/24/17 04/24/17 09:10 09:12 09:17 09:21 Pulse 67 66 66 66 Resp 18 14 14 14 Pulse Ox 98 98 98 98 O2 Delivery Nasal Cannula Nasal Cannula Nasal Cannula Nasal Cannula O2 Flow Rate 2.0 2.0 2.0 2.0 04/24/17 04/24/17 04/24/17 04/24/17 09:26 09:27 09:31 09:45 Pulse 66 67 69 Resp 14 14 14 16 B/P (MAP) 120/68 (85) Pulse Ox 98 95 95 96 O2 Delivery Nasal Cannula Room Air Room Air Room Air O2 Flow Rate 2.0 04/24/17 04/24/17 04/24/17 04/24/17 10:00 10:15 10:30 10:45 Pulse 66 64 66 65 Resp 16 16 16 16 B/P (MAP) 121/67 (85) 118/76 (90) 112/69 (83) 127/75 (92) Pulse Ox 96 97 94 97 O2 Delivery Room Air Room Air Room Air Room Air 04/24/17 11:15 Temp 98.1 98.1 Pulse 70 Resp 16 B/P (MAP) 124/73 (90) Pulse Ox 96 O2 Delivery Room Air DEBBIE DUBOIS MD Apr 24, 2017 13:14
[2017-04-24] MEDS: PHENYTOIN SODIUM EXTENDED 100 MG CAPSULE PO SCH (13:31)
[2017-04-24] MEDS: POLYETHYLENE GLYCOL 3350 17 GM PACKET. PO SCH (13:33)
--- NOTE | 2017-04-24 13:44 | PDOC ---
PROGRESS NOTES Subjective Subjective She admits continued soreness left sacroiliac joint area. Objective Objective Vital Signs Date Time Temp Pulse Resp B/P (MAP) Pulse Ox O2 Delivery O2 Flow Rate FiO2 04/24/17 11:15 98.1 70 16 124/73 (90) 96 Room Air 98.1 04/24/17 09:26 2.0 Physical Exam Physical Exam She had bone marrow biopsy done this AM. Plan Plan of Care To get her up as tolerated.To continue use of physical modalities and to consider injecting painful sacroiliac joint and lumbar corset if pain persists. Comment Review of Relevant I have reviewed the following items danielle (where applicable) has been applied. Labs Laboratory Tests Test 04/23/17 14:40 04/24/17 05:05 04/24/17 08:15 04/24/17 10:55 White Blood Count 42.6 x10^3/uL (4.0-11.0) 46.3 x10^3/uL (4.0-11.0) Red Blood Count 4.80 x10^6/uL (3.50-5.40) 4.58 x10^6/uL (3.50-5.40) Hemoglobin 14.6 g/dL (12.0-15.5) 13.8 g/dL (12.0-15.5) Hematocrit 43.2 % (36.0-47.0) 41.9 % (36.0-47.0) Mean Corpuscular Volume 90 fL (79-100) 92 fL (79-100) Mean Corpuscular Hemoglobin 30 pg (25-35) 30 pg (25-35) Mean Corpuscular Hemoglobin Concent 34 g/dL (31-37) 33 g/dL (31-37) Red Cell Distribution Width 13.8 % (11.5-14.5) 14.4 % (11.5-14.5) Platelet Count 220 x10^3/uL (140-400) 198 x10^3/uL (140-400) Neutrophils (%) (Auto) 16 % (31-73) 12 % (31-73) Lymphocytes (%) (Auto) 79 % (24-48) 84 % (24-48) Monocytes (%) (Auto) 4 % (0-9) 3 % (0-9) Eosinophils (%) (Auto) 1 % (0-3) 2 % (0-3) Basophils (%) (Auto) 1 % (0-3) 0 % (0-3) Neutrophils # (Auto) 6.8 x10^3uL (1.8-7.7) 5.4 x10^3uL (1.8-7.7) Lymphocytes # (Auto) 33.6 x10^3/uL (1.0-4.8) 38.8 x10^3/uL (1.0-4.8) Monocytes # (Auto) 1.6 x10^3/uL (0.0-1.1) 1.2 x10^3/uL (0.0-1.1) Eosinophils # (Auto) 0.4 x10^3/uL (0.0-0.7) 0.7 x10^3/uL (0.0-0.7) Basophils # (Auto) 0.2 x10^3/uL (0.0-0.2) 0.1 x10^3/uL (0.0-0.2) Segmented Neutrophils % 9 % (35-66) Lymphocytes % 75 % (24-48) Atypical Lymphocytes % (Manual) 10 % (0-0) Monocytes % 1 % (0-10) Eosinophils % 4 % (0-5) Blast Cells % (Manual) 1 % (0-0) Platelet Estimate Adequate (ADEQUATE) Erythrocyte Sedimentation Rate 13 (0-25) Sodium Level 142 mmol/L (136-145) Potassium Level 3.8 mmol/L (3.5-5.1) Chloride Level 106 mmol/L (98-107) Carbon Dioxide Level 27 mmol/L (21-32) Anion Gap 9 (6-14) Blood Urea Nitrogen 16 mg/dL (7-20) Creatinine 0.8 mg/dL (0.6-1.0) Estimated GFR (Cockcroft-Gault) 73.9 BUN/Creatinine Ratio 20 (6-20) Glucose Level 101 mg/dL (70-99) Calcium Level 8.8 mg/dL (8.5-10.1) Total Bilirubin 0.3 mg/dL (0.2-1.0) Aspartate Amino Transf (AST/SGOT) 20 U/L (15-37) Alanine Aminotransferase (ALT/SGPT) 31 U/L (14-59) Alkaline Phosphatase 162 U/L (46-116) C-Reactive Protein High Sensitivity 3.68 mg/L (0.00-3.00) Total Protein 7.3 g/dL (6.4-8.2) Albumin 3.7 g/dL (3.4-5.0) Albumin/Globulin Ratio 1.0 (1.0-1.7) Phenytoin (Dilantin) Level 7.5 mcg/mL (10.0-20.0) 4.8 mcg/mL (10.0-20.0) Phenytoin Last Dose Date 04/23/17 04/23/17 Phenytoin Last Dose Time 0900 1000 Prothrombin Time 12.8 SEC (11.7-14.0) Prothromb Time International Ratio 1.0 (0.8-1.1) Activated Partial Thromboplast Time 29 SEC (24-38) Urine Opiates Screen Pos (NEG) Urine Methadone Screen Neg (NEG) Urine Barbiturates Neg (NEG) Urine Phencyclidine Screen Neg (NEG) Urine Amphetamine/Methamphetamine Neg (NEG) Urine Benzodiazepines Screen Neg (NEG) Urine Cocaine Screen Neg (NEG) Urine Cannabinoids Screen Neg (NEG) Urine Ethyl Alcohol Neg (NEG) Laboratory Tests Test 04/23/17 14:40 04/24/17 05:05 04/24/17 08:15 04/24/17 10:55 White Blood Count 42.6 x10^3/uL (4.0-11.0) 46.3 x10^3/uL (4.0-11.0) Red Blood Count 4.80 x10^6/uL (3.50-5.40) 4.58 x10^6/uL (3.50-5.40) Hemoglobin 14.6 g/dL (12.0-15.5) 13.8 g/dL (12.0-15.5) Hematocrit 43.2 % (36.0-47.0) 41.9 % (36.0-47.0) Mean Corpuscular Volume 90 fL (79-100) 92 fL (79-100) Mean Corpuscular Hemoglobin 30 pg (25-35) 30 pg (25-35) Mean Corpuscular Hemoglobin Concent 34 g/dL (31-37) 33 g/dL (31-37) Red Cell Distribution Width 13.8 % (11.5-14.5) 14.4 % (11.5-14.5) Platelet Count 220 x10^3/uL (140-400) 198 x10^3/uL (140-400) Neutrophils (%) (Auto) 16 % (31-73) 12 % (31-73) Lymphocytes (%) (Auto) 79 % (24-48) 84 % (24-48) Monocytes (%) (Auto) 4 % (0-9) 3 % (0-9) Eosinophils (%) (Auto) 1 % (0-3) 2 % (0-3) Basophils (%) (Auto) 1 % (0-3) 0 % (0-3) Neutrophils # (Auto) 6.8 x10^3uL (1.8-7.7) 5.4 x10^3uL (1.8-7.7) Lymphocytes # (Auto) 33.6 x10^3/uL (1.0-4.8) 38.8 x10^3/uL (1.0-4.8) Monocytes # (Auto) 1.6 x10^3/uL (0.0-1.1) 1.2 x10^3/uL (0.0-1.1) Eosinophils # (Auto) 0.4 x10^3/uL (0.0-0.7) 0.7 x10^3/uL (0.0-0.7) Basophils # (Auto) 0.2 x10^3/uL (0.0-0.2) 0.1 x10^3/uL (0.0-0.2) Segmented Neutrophils % 9 % (35-66) Lymphocytes % 75 % (24-48) Atypical Lymphocytes % (Manual) 10 % (0-0) Monocytes % 1 % (0-10) Eosinophils % 4 % (0-5) Blast Cells % (Manual) 1 % (0-0) Platelet Estimate Adequate (ADEQUATE) Erythrocyte Sedimentation Rate 13 (0-25) Sodium Level 142 mmol/L (136-145) Potassium Level 3.8 mmol/L (3.5-5.1) Chloride Level 106 mmol/L (98-107) Carbon Dioxide Level 27 mmol/L (21-32) Anion Gap 9 (6-14) Blood Urea Nitrogen 16 mg/dL (7-20) Creatinine 0.8 mg/dL (0.6-1.0) Estimated GFR (Cockcroft-Gault) 73.9 BUN/Creatinine Ratio 20 (6-20) Glucose Level 101 mg/dL (70-99) Calcium Level 8.8 mg/dL (8.5-10.1) Total Bilirubin 0.3 mg/dL (0.2-1.0) Aspartate Amino Transf (AST/SGOT) 20 U/L (15-37) Alanine Aminotransferase (ALT/SGPT) 31 U/L (14-59) Alkaline Phosphatase 162 U/L (46-116) C-Reactive Protein High Sensitivity 3.68 mg/L (0.00-3.00) Total Protein 7.3 g/dL (6.4-8.2) Albumin 3.7 g/dL (3.4-5.0) Albumin/Globulin Ratio 1.0 (1.0-1.7) Phenytoin (Dilantin) Level 7.5 mcg/mL (10.0-20.0) 4.8 mcg/mL (10.0-20.0) Phenytoin Last Dose Date 04/23/17 04/23/17 Phenytoin Last Dose Time 0900 1000 Prothrombin Time 12.8 SEC (11.7-14.0) Prothromb Time International Ratio 1.0 (0.8-1.1) Activated Partial Thromboplast Time 29 SEC (24-38) Urine Opiates Screen Pos (NEG) Urine Methadone Screen Neg (NEG) Urine Barbiturates Neg (NEG) Urine Phencyclidine Screen Neg (NEG) Urine Amphetamine/Methamphetamine Neg (NEG) Urine Benzodiazepines Screen Neg (NEG) Urine Cocaine Screen Neg (NEG) Urine Cannabinoids Screen Neg (NEG) Urine Ethyl Alcohol Neg (NEG) Medications Current Medications Acetaminophen/ Hydrocodone Bitart (Lortab 7.5/325) 1 tab PRN Q4HRS PRN PO PAIN Last administered on 04/23/17 08:57; Start 04/22/17 at 15:30 Acetaminophen/ Hydrocodone Bitart (Lortab 7.5/325) 2 tab PRN Q4HRS PRN PO PAIN Last administered on 04/23/17 21:04; Start 04/22/17 at 15:30 Methocarbamol (Robaxin) 500 mg PRN TID PRN PO MUSCLE SPASMS Last administered on 04/23/17 16:32; Start 04/22/17 at 15:30 Atorvastatin Calcium (Lipitor) 10 mg HS PO Last administered on 04/23/17 21:03 ; Start 04/22/17 at 21:00 Celecoxib (CeleBREX) 200 mg BID PO Last administered on 04/24/17 10:38; Start 04/22/17 at 21:00 Phenytoin Sodium (Dilantin) 400 mg DAILY@1000 PO Last administered on 13:31; Start 04/23/17 at 10:00 Lidocaine/Sodium Bicarbonate (Buffered Lidocaine 1%) 20 ml STK-MED ONCE IJ ; Start 04/24/17 at 08:48; Stop 04/24/17 at 08:49; Status DC Midazolam HCl (Versed) 5 mg STK-MED ONCE .ROUTE ; Start 04/24/17 at 08:51; Stop 04/24/17 at 08:52; Status DC Fentanyl Citrate (Fentanyl 5ml Vial) 250 mcg STK-MED ONCE .ROUTE ; Start at 08:52; Stop 04/24/17 at 08:53; Status DC Flumazenil (Romazicon) 0.5 mg STK-MED ONCE IV ; Start 04/24/17 at 08:52; Stop at 08:53; Status DC Naloxone HCl (Narcan) 0.4 mg STK-MED ONCE .ROUTE ; Start 04/24/17 at 08:52; Stop 04/24/17 at 08:53; Status DC Lidocaine/Sodium Bicarbonate (Buffered Lidocaine 1%) 20 ml 1X ONCE IJ Last administered on 04/24/17 09:31; Start 04/24/17 at 09:15; Stop 04/24/17 at 09:16 ; Status DC Midazolam HCl (Versed) 5 mg 1X ONCE IV Last administered on 04/24/17 09:30; Start 04/24/17 at 09:15; Stop 04/24/17 at 09:16; Status DC Fentanyl Citrate (Fentanyl 5ml Vial) 250 mcg 1X ONCE IV Last administered on 09:31; Start 04/24/17 at 09:15; Stop 04/24/17 at 09:16; Status DC Phenytoin Sodium (Dilantin) 300 mg 1X ONCE PO ; Start 04/24/17 at 10:45; Stop 04/24/17 at 10:46; Status DC Docusate Sodium (Colace) 100 mg BID PO ; Start 04/24/17 at 21:00 Polyethylene Glycol (miraLAX PACKET) 17 gm DAILY PO Last administered on t 13:33; Start 04/24/17 at 14:00 Active Scripts Active Ibuprofen 800 Mg Tablet 800 Mg PO PRN Q8HRS PRN 10 Days Reported Phenytek (Phenytoin Sodium Extended) 200 Mg Capsule 400 Mg PO DAILY10 Atorvastatin Calcium 10 Mg Tablet 10 Mg PO HS Fosamax (Alendronate Sodium) 70 Mg Tablet 1 Tab PO WEEKLY Acetaminophen 500 Mg Tablet 3 Tab PO Q4HRS Celebrex (Celecoxib) 200 Mg Capsule 200 Mg PO BID 30 Days Vitals/I & O Vital Sign - Last 24 Hours 04/23/17 04/23/17 04/23/17 04/23/17 15:06 16:32 19:00 19:28 Temp 98.1 98.6 98.1 98.6 Pulse 67 78 Resp 18 20 B/P (MAP) 117/74 (88) 126/75 (92) Pulse Ox 97 94 O2 Delivery Room Air Room Air Room Air Room Air 04/23/17 04/23/17 04/24/17 04/24/17 21:04 23:00 03:00 07:00 Temp 98.3 97.9 98.1 98.3 97.9 98.1 Pulse 68 64 76 Resp 18 20 18 18 B/P (MAP) 111/61 (78) 110/64 (79) 136/75 (95) Pulse Ox 95 98 94 O2 Delivery Room Air Room Air Room Air Room Air 04/24/17 04/24/17 04/24/17 04/24/17 09:10 09:12 09:17 09:21 Pulse 67 66 66 66 Resp 18 14 14 14 Pulse Ox 98 98 98 98 O2 Delivery Nasal Cannula Nasal Cannula Nasal Cannula Nasal Cannula O2 Flow Rate 2.0 2.0 2.0 2.0 04/24/17 04/24/17 04/24/17 04/24/17 09:26 09:27 09:31 09:45 Pulse 66 67 69 Resp 14 14 14 16 B/P (MAP) 120/68 (85) Pulse Ox 98 95 95 96 O2 Delivery Nasal Cannula Room Air Room Air Room Air O2 Flow Rate 2.0 04/24/17 04/24/17 04/24/17 04/24/17 10:00 10:15 10:30 10:45 Pulse 66 64 66 65 Resp 16 16 16 16 B/P (MAP) 121/67 (85) 118/76 (90) 112/69 (83) 127/75 (92) Pulse Ox 96 97 94 97 O2 Delivery Room Air Room Air Room Air Room Air 04/24/17 11:15 Temp 98.1 98.1 Pulse 70 Resp 16 B/P (MAP) 124/73 (90) Pulse Ox 96 O2 Delivery Room Air MANOJ MONZON MD Apr 24, 2017 13:44
--- NOTE | 2017-04-24 14:18 | RAD ---
CT-guided bone marrow biopsy. 04/24/2017 2:16 PM Indication: LEUKOCYTOSIS - EVAL FOR CLL Discussion: The risks and benefits of the procedure, including but not limited to, bleeding and infection were discussed patient. Informed consent was obtained. The patient was brought to the CT scanner and placed in the prone position. A timeout procedure was performed. Account Strateg[employer] CT imaging of the pelvis demonstrated left ilium amenable to bone marrow biopsy. The overlying soft tissues were prepped and draped using maximum sterile barrier technique. 1% lidocaine without epinephrine was administered for local anesthesia. Under intermittent CT guidance, an OncControl needle was advanced into the bone marrow of the left iliac crest. 2 Aspirates and 1 core biopsy samples were obtained. Samples were delivered to pathology was present at the time of procedure. The needle was removed and manual pressure held to achieve hemostasis. No immediate complications were identified. The procedure was performed under conscious sedation including continuous cardiopulmonary monitoring via dedicated sedation nurse. Sedation time: 20 minutes Impression: Successful CT-guided bone marrow biopsy of the left iliac crest . PQRS Compliance Statement: One or more of the following individualized dose reduction techniques were utilized for this examination: 1. Automated exposure control 2. Adjustment of the mA and/or kV according to patient size 3. Use of iterative reconstruction technique
--- NOTE | 2017-04-24 17:42 | PDOC ---
PROGRESS NOTES Assessment Assessment Seizure. Leukocytosis, WBC 42.6, Lymph 78% HLD Thyroiditis, Hx Obesity RECOMMENDATIONS/PLAN: EEG on 04/24. Continue Dilantin 400 daily. Add 300 mg on 04/24. Treat medical diseases. Consulted hematology for elevated lymph counts, and bone marrow biopsy performed on 04/24. HISTORY OF THE PRESENT ILLNESS: 57-y-old female patient with HJx of seizure since age 16. She stated that she usually had a seizure every 2 to 3 months in the past described as GTC. She was treated with Dilantin and PB for several years then discontinued medical for a while. She has been taken Dilantin as monotherapy in the past 10 years and no seizures in the past 7 years. She said she has been under a lot of emotional stress selling her house, moving etc. She had a seizure described as LOC with shaking movements and [postictal state for about 30 minutes on 04/22/17 to be brought to [facility]. No seizures since in the hospital. She stated she bit her tongue , but no loss of control of urinary bladder. Past Medical History Cardiovascular: Hyperlipidemia CENTRAL NERVOUS SYSTEM: Seizure Past Surgical History right breast mass removal x3 - benign Past Surgical History: Cholecystectomy, Tubal Ligation, Hysterectomy Family History Cancer, Diabetes, HLD, Hypertension Social History Quit (2006) ALCOHOL: none Drugs: None Lives: but . Alone (but states she will be moving in with her daughter soon) ALLERGY: Reviewed. MEDICATIONS: Refer to MAR REVIEW OF SYSTEMS: Constitutional: Obesity. Head: No traumatic brain or head injury. Skin: No edema, or rash. Ear: No infection. Eyes: No vision loss or color blindness. Nose: No bleeding or purulent discharges. Hearing: No hearing decrease. Neck: No injury. Breast: No history of cancer, masses,or discharges. Cardiac: HLD. Pulmonary: No COPD. GI: No GI ulcer, GI bleeding. Urinary/genital: UTI. Endocrinologic: Thyroiditis, obesity Skeletomuscular: No muscular atrophy, deformity Neurological: see HP. Psychiatric: Denies drug use/abuse. Otherwise, not [id number] review of systems. PHYSICAL EXAMINATION: General appearance is in no acute distress. HEENT: Normocephalic and nontraumatic. Eyes, nose, ears, and throat are unremarkable. Neck is supple. No lymphadenopathy. No bruits are heard over the carotid artery. No crepitus. Cardiovascular: S1, S2, regular rate and rhythm. Pulmonary: Clear to auscultation bilaterally. Abdomen: Bowel sounds are positive. Abdomen is soft, nontender, and nondistended. Extremities: No rash, lesions, or edema. No restriction of range of motion NEUROLOGICAL EXAMINATION: Alert Oriented to time, place and person. PERRL. EOMI. CN: no focal findings. Muscle tone: within normal. Muscle strength: 5 DTR: 2 Plantar reflex: Flexor response bilaterally Gait: not examined in bed. Sensory exam: no abnormal findings. No cerebellar signs elicited. F-T-N test accurate. Objective Objective Vital Signs Date Time Temp Pulse Resp B/P (MAP) Pulse Ox O2 Delivery O2 Flow Rate FiO2 04/24/17 15:00 98.8 71 16 126/69 (88) 95 Room Air 98.8 04/24/17 09:26 2.0 Intake and Output 04/25/17 07:00 # Voids 4 Vitals Signs Vitals VS - Last 72 Hours, by Label Date Time Temp Pulse Resp B/P (MAP) Pulse Ox O2 Delivery O2 Flow Rate FiO2 04/24/17 15:00 98.8 71 16 126/69 (88) 95 Room Air 98.8 04/24/17 11:15 98.1 70 16 124/73 (90) 96 Room Air 98.1 04/24/17 10:45 65 16 127/75 (92) 97 Room Air 04/24/17 10:30 66 16 112/69 (83) 94 Room Air 04/24/17 10:15 64 16 118/76 (90) 97 Room Air 04/24/17 10:00 66 16 121/67 (85) 96 Room Air 04/24/17 09:45 69 16 120/68 (85) 96 Room Air 04/24/17 09:31 14 95 Room Air 04/24/17 09:27 67 14 95 Room Air 04/24/17 09:26 66 14 98 Nasal Cannula 2.0 04/24/17 09:21 66 14 98 Nasal Cannula 2.0 04/24/17 09:17 66 14 98 Nasal Cannula 2.0 04/24/17 09:12 66 14 98 Nasal Cannula 2.0 04/24/17 09:10 67 18 98 Nasal Cannula 2.0 04/24/17 07:50 Room Air 04/24/17 07:00 98.1 76 18 136/75 (95) 94 Room Air 98.1 04/24/17 03:00 97.9 64 18 110/64 (79) 98 Room Air 97.9 04/23/17 23:00 98.3 68 20 111/61 (78) 95 Room Air 98.3 04/23/17 21:04 18 Room Air 04/23/17 19:28 Room Air 04/23/17 19:00 98.6 78 20 126/75 (92) 94 Room Air 98.6 04/23/17 16:32 Room Air 04/23/17 15:06 98.1 67 18 117/74 (88) 97 Room Air 98.1 04/23/17 12:22 Room Air 04/23/17 11:25 Room Air 04/23/17 11:00 98.1 58 18 130/61 (84) 95 Room Air 98.1 04/23/17 08:57 Room Air 04/23/17 08:25 Room Air 04/23/17 07:00 97.9 65 16 122/72 (89) 97 Room Air 97.9 Laboratory Laboratory Laboratory Tests Test 04/24/17 05:05 04/24/17 08:15 04/24/17 10:55 White Blood Count 46.3 x10^3/uL (4.0-11.0) Red Blood Count 4.58 x10^6/uL (3.50-5.40) Hemoglobin 13.8 g/dL (12.0-15.5) Hematocrit 41.9 % (36.0-47.0) Mean Corpuscular Volume 92 fL (79-100) Mean Corpuscular Hemoglobin 30 pg (25-35) Mean Corpuscular Hemoglobin Concent 33 g/dL (31-37) Red Cell Distribution Width 14.4 % (11.5-14.5) Platelet Count 198 x10^3/uL (140-400) Neutrophils (%) (Auto) 12 % (31-73) Lymphocytes (%) (Auto) 84 % (24-48) Monocytes (%) (Auto) 3 % (0-9) Eosinophils (%) (Auto) 2 % (0-3) Basophils (%) (Auto) 0 % (0-3) Neutrophils # (Auto) 5.4 x10^3uL (1.8-7.7) Lymphocytes # (Auto) 38.8 x10^3/uL (1.0-4.8) Monocytes # (Auto) 1.2 x10^3/uL (0.0-1.1) Eosinophils # (Auto) 0.7 x10^3/uL (0.0-0.7) Basophils # (Auto) 0.1 x10^3/uL (0.0-0.2) Phenytoin (Dilantin) Level 4.8 mcg/mL (10.0-20.0) Phenytoin Last Dose Date 04/23/17 Phenytoin Last Dose Time 1000 Prothrombin Time 12.8 SEC (11.7-14.0) Prothromb Time International Ratio 1.0 (0.8-1.1) Activated Partial Thromboplast Time 29 SEC (24-38) Urine Opiates Screen Pos (NEG) Urine Methadone Screen Neg (NEG) Urine Barbiturates Neg (NEG) Urine Phencyclidine Screen Neg (NEG) Urine Amphetamine/Methamphetamine Neg (NEG) Urine Benzodiazepines Screen Neg (NEG) Urine Cocaine Screen Neg (NEG) Urine Cannabinoids Screen Neg (NEG) Urine Ethyl Alcohol Neg (NEG) Medication Medications Current Medications Docusate Sodium (Colace) 100 mg BID PO ; Start 04/24/17 at 21:00 Fentanyl Citrate (Fentanyl 5ml Vial) 250 mcg 1X ONCE IV Last administered on 09:31; Start 04/24/17 at 09:15; Stop 04/24/17 at 09:16; Status DC Fentanyl Citrate (Fentanyl 5ml Vial) 250 mcg STK-MED ONCE .ROUTE ; Start at 08:52; Stop 04/24/17 at 08:53; Status DC Flumazenil (Romazicon) 0.5 mg STK-MED ONCE IV ; Start 04/24/17 at 08:52; Stop at 08:53; Status DC Lidocaine/Sodium Bicarbonate (Buffered Lidocaine 1%) 20 ml 1X ONCE IJ Last administered on 04/24/17 09:31; Start 04/24/17 at 09:15; Stop 04/24/17 at 09:16 ; Status DC Lidocaine/Sodium Bicarbonate (Buffered Lidocaine 1%) 20 ml STK-MED ONCE IJ ; Start 04/24/17 at 08:48; Stop 04/24/17 at 08:49; Status DC Midazolam HCl (Versed) 5 mg 1X ONCE IV Last administered on 04/24/17t 09:30; Start 04/24/17 at 09:15; Stop 04/24/17 at 09:16; Status DC Midazolam HCl (Versed) 5 mg STK-MED ONCE .ROUTE ; Start 04/24/17 at 08:51; Stop 04/24/17 at 08:52; Status DC Naloxone HCl (Narcan) 0.4 mg STK-MED ONCE .ROUTE ; Start 04/24/17 at 08:52; Stop 04/24/17 at 08:53; Status DC Phenytoin Sodium (Dilantin) 300 mg 1X ONCE PO ; Start 04/24/17 at 10:45; Stop 04/24/17 at 10:46; Status DC Polyethylene Glycol (miraLAX PACKET) 17 gm DAILY PO Last administered on t 13:33; Start 04/24/17 at 14:00 Comment Review of Relevant I have reviewed the following items danielle (where applicable) has been applied. KEATON DUNN MD Apr 24, 2017 17:42
[2017-04-24] MEDS: DOCUSATE SODIUM 100 MG CAPSULE. PO SCH (20:19)
[2017-04-24] MEDS: ATORVASTATIN CALCIUM 10 MG TABLET. PO SCH (20:19)
[2017-04-24] MEDS: HYDROcodone/APAP 7.5/325MG 1 TAB TABLET PO PRN (20:20)
[2017-04-25 02:39] VITALS: BP 114/61
[2017-04-25 07:00] VITALS: BP 119/75
--- NOTE | 2017-04-25 09:06 | PDOC ---
PROGRESS NOTES Subjective Subjective c/c - f/u of Leukocytosis ROS - has hip pain Objective Objective Vital Signs Date Time Temp Pulse Resp B/P (MAP) Pulse Ox O2 Delivery O2 Flow Rate FiO2 04/25/17 07:00 98.1 77 18 119/75 (90) 98 Room Air 98.1 04/24/17 09:26 2.0 Physical Exam Heart: Normal S1, Normal S2 General: Alert, Oriented X3 Lungs: Clear to auscultation Neuro: Normal speech Psych/Mental Status: Mental status NL Assessment Assessment IMPRESSION AND PLAN: 1. Leukocytosis with elevated absolute lymphocyte count on 04/23/17 with WBC 42.6, is concerning for chronic lymphocytic leukemia. In addition, she also has evidence of 1% blasts on manual differential count. s/p bone marrow aspiration and biopsy 04/24/17 to evaluate for leukemia. I discussed in detail with the patient and she understands and agrees with the plan. 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 f/u with me in 2 weeks 2. Seizure disorder. I appreciate Neurology consultation. Comment Review of Relevant I have reviewed the following items danielle (where applicable) has been applied. Labs Laboratory Tests Test 04/23/17 14:40 04/24/17 05:05 04/24/17 08:15 04/24/17 10:55 White Blood Count 42.6 x10^3/uL (4.0-11.0) 46.3 x10^3/uL (4.0-11.0) Red Blood Count 4.80 x10^6/uL (3.50-5.40) 4.58 x10^6/uL (3.50-5.40) Hemoglobin 14.6 g/dL (12.0-15.5) 13.8 g/dL (12.0-15.5) Hematocrit 43.2 % (36.0-47.0) 41.9 % (36.0-47.0) Mean Corpuscular Volume 90 fL (79-100) 92 fL (79-100) Mean Corpuscular Hemoglobin 30 pg (25-35) 30 pg (25-35) Mean Corpuscular Hemoglobin Concent 34 g/dL (31-37) 33 g/dL (31-37) Red Cell Distribution Width 13.8 % (11.5-14.5) 14.4 % (11.5-14.5) Platelet Count 220 x10^3/uL (140-400) 198 x10^3/uL (140-400) Neutrophils (%) (Auto) 16 % (31-73) 12 % (31-73) Lymphocytes (%) (Auto) 79 % (24-48) 84 % (24-48) Monocytes (%) (Auto) 4 % (0-9) 3 % (0-9) Eosinophils (%) (Auto) 1 % (0-3) 2 % (0-3) Basophils (%) (Auto) 1 % (0-3) 0 % (0-3) Neutrophils # (Auto) 6.8 x10^3uL (1.8-7.7) 5.4 x10^3uL (1.8-7.7) Lymphocytes # (Auto) 33.6 x10^3/uL (1.0-4.8) 38.8 x10^3/uL (1.0-4.8) Monocytes # (Auto) 1.6 x10^3/uL (0.0-1.1) 1.2 x10^3/uL (0.0-1.1) Eosinophils # (Auto) 0.4 x10^3/uL (0.0-0.7) 0.7 x10^3/uL (0.0-0.7) Basophils # (Auto) 0.2 x10^3/uL (0.0-0.2) 0.1 x10^3/uL (0.0-0.2) Segmented Neutrophils % 9 % (35-66) Lymphocytes % 75 % (24-48) Atypical Lymphocytes % (Manual) 10 % (0-0) Monocytes % 1 % (0-10) Eosinophils % 4 % (0-5) Blast Cells % (Manual) 1 % (0-0) Platelet Estimate Adequate (ADEQUATE) Erythrocyte Sedimentation Rate 13 (0-25) Sodium Level 142 mmol/L (136-145) Potassium Level 3.8 mmol/L (3.5-5.1) Chloride Level 106 mmol/L (98-107) Carbon Dioxide Level 27 mmol/L (21-32) Anion Gap 9 (6-14) Blood Urea Nitrogen 16 mg/dL (7-20) Creatinine 0.8 mg/dL (0.6-1.0) Estimated GFR (Cockcroft-Gault) 73.9 BUN/Creatinine Ratio 20 (6-20) Glucose Level 101 mg/dL (70-99) Calcium Level 8.8 mg/dL (8.5-10.1) Total Bilirubin 0.3 mg/dL (0.2-1.0) Aspartate Amino Transf (AST/SGOT) 20 U/L (15-37) Alanine Aminotransferase (ALT/SGPT) 31 U/L (14-59) Alkaline Phosphatase 162 U/L (46-116) C-Reactive Protein High Sensitivity 3.68 mg/L (0.00-3.00) Total Protein 7.3 g/dL (6.4-8.2) Albumin 3.7 g/dL (3.4-5.0) Albumin/Globulin Ratio 1.0 (1.0-1.7) Phenytoin (Dilantin) Level 7.5 mcg/mL (10.0-20.0) 4.8 mcg/mL (10.0-20.0) Phenytoin Last Dose Date 04/23/17 04/23/17 Phenytoin Last Dose Time 0900 1000 Prothrombin Time 12.8 SEC (11.7-14.0) Prothromb Time International Ratio 1.0 (0.8-1.1) Activated Partial Thromboplast Time 29 SEC (24-38) Urine Opiates Screen Pos (NEG) Urine Methadone Screen Neg (NEG) Urine Barbiturates Neg (NEG) Urine Phencyclidine Screen Neg (NEG) Urine Amphetamine/Methamphetamine Neg (NEG) Urine Benzodiazepines Screen Neg (NEG) Urine Cocaine Screen Neg (NEG) Urine Cannabinoids Screen Neg (NEG) Urine Ethyl Alcohol Neg (NEG) Laboratory Tests Test 04/24/17 10:55 Urine Opiates Screen Pos (NEG) Urine Methadone Screen Neg (NEG) Urine Barbiturates Neg (NEG) Urine Phencyclidine Screen Neg (NEG) Urine Amphetamine/Methamphetamine Neg (NEG) Urine Benzodiazepines Screen Neg (NEG) Urine Cocaine Screen Neg (NEG) Urine Cannabinoids Screen Neg (NEG) Urine Ethyl Alcohol Neg (NEG) Medications Current Medications Acetaminophen/ Hydrocodone Bitart (Lortab 7.5/325) 1 tab PRN Q4HRS PRN PO PAIN Last administered on 04/23/17 08:57; Start 04/22/17 at 15:30 Acetaminophen/ Hydrocodone Bitart (Lortab 7.5/325) 2 tab PRN Q4HRS PRN PO PAIN Last administered on 04/24/17 20:20; Start 04/22/17 at 15:30 Methocarbamol (Robaxin) 500 mg PRN TID PRN PO MUSCLE SPASMS Last administered on 04/23/17 16:32; Start 04/22/17 at 15:30 Atorvastatin Calcium (Lipitor) 10 mg HS PO Last administered on 04/24/17 20:19 ; Start 04/22/17 at 21:00 Celecoxib (CeleBREX) 200 mg BID PO Last administered on 04/24/17 20:19; Start 04/22/17 at 21:00 Phenytoin Sodium (Dilantin) 400 mg DAILY@1000 PO Last administered on 13:31; Start 04/23/17 at 10:00 Lidocaine/Sodium Bicarbonate (Buffered Lidocaine 1%) 20 ml STK-MED ONCE IJ ; Start 04/24/17 at 08:48; Stop 04/24/17 at 08:49; Status DC Midazolam HCl (Versed) 5 mg STK-MED ONCE .ROUTE ; Start 04/24/17 at 08:51; Stop 04/24/17 at 08:52; Status DC Fentanyl Citrate (Fentanyl 5ml Vial) 250 mcg STK-MED ONCE .ROUTE ; Start at 08:52; Stop 04/24/17 at 08:53; Status DC Flumazenil (Romazicon) 0.5 mg STK-MED ONCE IV ; Start 04/24/17 at 08:52; Stop at 08:53; Status DC Naloxone HCl (Narcan) 0.4 mg STK-MED ONCE .ROUTE ; Start 04/24/17 at 08:52; Stop 04/24/17 at 08:53; Status DC Lidocaine/Sodium Bicarbonate (Buffered Lidocaine 1%) 20 ml 1X ONCE IJ Last administered on 04/24/17 09:31; Start 04/24/17 at 09:15; Stop 04/24/17 at 09:16 ; Status DC Midazolam HCl (Versed) 5 mg 1X ONCE IV Last administered on 04/24/17 09:30; Start 04/24/17 at 09:15; Stop 04/24/17 at 09:16; Status DC Fentanyl Citrate (Fentanyl 5ml Vial) 250 mcg 1X ONCE IV Last administered on 09:31; Start 04/24/17 at 09:15; Stop 04/24/17 at 09:16; Status DC Phenytoin Sodium (Dilantin) 300 mg 1X ONCE PO ; Start 04/24/17 at 10:45; Stop 04/24/17 at 10:46; Status DC Docusate Sodium (Colace) 100 mg BID PO Last administered on 04/24/17 20:19; Start 04/24/17 at 21:00 Polyethylene Glycol (miraLAX PACKET) 17 gm DAILY PO Last administered on 13:33; Start 04/24/17 at 14:00 Phenytoin Sodium (Dilantin) 300 mg 1X ONCE PO Last administered on 04/24/17 20:18; Start 04/24/17 at 20:15; Stop 04/24/17 at 20:16; Status DC Active Scripts Active Ibuprofen 800 Mg Tablet 800 Mg PO PRN Q8HRS PRN 10 Days Reported Phenytek (Phenytoin Sodium Extended) 200 Mg Capsule 400 Mg PO DAILY10 Atorvastatin Calcium 10 Mg Tablet 10 Mg PO HS Fosamax (Alendronate Sodium) 70 Mg Tablet 1 Tab PO WEEKLY Acetaminophen 500 Mg Tablet 3 Tab PO Q4HRS Celebrex (Celecoxib) 200 Mg Capsule 200 Mg PO BID 30 Days Vitals/I & O Vital Sign - Last 24 Hours 04/24/17 04/24/17 04/24/17 04/24/17 09:10 09:12 09:17 09:21 Pulse 67 66 66 66 Resp 18 14 14 14 Pulse Ox 98 98 98 98 O2 Delivery Nasal Cannula Nasal Cannula Nasal Cannula Nasal Cannula O2 Flow Rate 2.0 2.0 2.0 2.0 04/24/17 04/24/17 04/24/17 04/24/17 09:26 09:27 09:31 09:45 Pulse 66 67 69 Resp 14 14 14 16 B/P (MAP) 120/68 (85) Pulse Ox 98 95 95 96 O2 Delivery Nasal Cannula Room Air Room Air Room Air O2 Flow Rate 2.0 04/24/17 04/24/17 04/24/17 04/24/17 10:00 10:15 10:30 10:45 Pulse 66 64 66 65 Resp 16 16 16 16 B/P (MAP) 121/67 (85) 118/76 (90) 112/69 (83) 127/75 (92) Pulse Ox 96 97 94 97 O2 Delivery Room Air Room Air Room Air Room Air 04/24/17 04/24/17 04/24/17 04/24/17 11:15 15:00 19:00 20:20 Temp 98.1 98.8 97.9 98.1 98.8 97.9 Pulse 70 71 76 Resp 16 16 18 B/P (MAP) 124/73 (90) 126/69 (88) 126/78 (94) Pulse Ox 96 95 96 O2 Delivery Room Air Room Air Room Air Room Air 04/24/17 04/24/17 04/24/17 04/25/17 20:20 21:22 23:00 02:39 Temp 97.9 98.0 97.9 98.0 Pulse 70 68 Resp 18 18 19 B/P (MAP) 102/68 (79) 114/61 (78) Pulse Ox 95 99 98 O2 Delivery Room Air Room Air Room Air Room Air 04/25/17 07:00 Temp 98.1 98.1 Pulse 77 Resp 18 B/P (MAP) 119/75 (90) Pulse Ox 98 O2 Delivery Room Air GELACIO MONTEZ MD Apr 25, 2017 09:06
[2017-04-25] MEDS: PHENYTOIN SODIUM EXTENDED 100 MG CAPSULE PO SCH (10:14)
[2017-04-25] MEDS: HYDROcodone/APAP 7.5/325MG 1 TAB TABLET PO PRN (10:14)
[2017-04-25] MEDS: CELECOXIB 200 MG CAPSULE. PO SCH (10:15)
[2017-04-25] MEDS: POLYETHYLENE GLYCOL 3350 17 GM PACKET. PO SCH (10:15)
[2017-04-25] MEDS: DOCUSATE SODIUM 100 MG CAPSULE. PO SCH (10:15)
[2017-04-25 11:00] VITALS: BP 117/69
[2017-04-25] MEDS ORDERED: HYDR-2762 PO (12:24)
[2017-04-25] MEDS ORDERED: METH500T7 PO (12:24)
[2017-04-25] MEDS ORDERED: POLY17PO3 PO (12:24)
[2017-04-25] MEDS ORDERED: PHEN100C PO (12:24)
--- NOTE | 2017-04-25 13:41 | PDOC ---
PROGRESS NOTES Subjective Subjective She admits better pain control. Objective Objective Vital Signs Date Time Temp Pulse Resp B/P (MAP) Pulse Ox O2 Delivery O2 Flow Rate FiO2 04/25/17 12:35 Room Air 04/25/17 11:00 97.7 65 18 117/69 (85) 100 97.7 04/24/17 09:26 2.0 Physical Exam Physical Exam She remains independent with her mobility and self care. Plan Plan of Long Term when medically stable. Comment Review of Relevant I have reviewed the following items danielle (where applicable) has been applied. Labs Laboratory Tests Test 04/23/17 14:40 04/24/17 05:05 04/24/17 08:15 04/24/17 10:55 White Blood Count 42.6 x10^3/uL (4.0-11.0) 46.3 x10^3/uL (4.0-11.0) Red Blood Count 4.80 x10^6/uL (3.50-5.40) 4.58 x10^6/uL (3.50-5.40) Hemoglobin 14.6 g/dL (12.0-15.5) 13.8 g/dL (12.0-15.5) Hematocrit 43.2 % (36.0-47.0) 41.9 % (36.0-47.0) Mean Corpuscular Volume 90 fL (79-100) 92 fL (79-100) Mean Corpuscular Hemoglobin 30 pg (25-35) 30 pg (25-35) Mean Corpuscular Hemoglobin Concent 34 g/dL (31-37) 33 g/dL (31-37) Red Cell Distribution Width 13.8 % (11.5-14.5) 14.4 % (11.5-14.5) Platelet Count 220 x10^3/uL (140-400) 198 x10^3/uL (140-400) Neutrophils (%) (Auto) 16 % (31-73) 12 % (31-73) Lymphocytes (%) (Auto) 79 % (24-48) 84 % (24-48) Monocytes (%) (Auto) 4 % (0-9) 3 % (0-9) Eosinophils (%) (Auto) 1 % (0-3) 2 % (0-3) Basophils (%) (Auto) 1 % (0-3) 0 % (0-3) Neutrophils # (Auto) 6.8 x10^3uL (1.8-7.7) 5.4 x10^3uL (1.8-7.7) Lymphocytes # (Auto) 33.6 x10^3/uL (1.0-4.8) 38.8 x10^3/uL (1.0-4.8) Monocytes # (Auto) 1.6 x10^3/uL (0.0-1.1) 1.2 x10^3/uL (0.0-1.1) Eosinophils # (Auto) 0.4 x10^3/uL (0.0-0.7) 0.7 x10^3/uL (0.0-0.7) Basophils # (Auto) 0.2 x10^3/uL (0.0-0.2) 0.1 x10^3/uL (0.0-0.2) Segmented Neutrophils % 9 % (35-66) Lymphocytes % 75 % (24-48) Atypical Lymphocytes % (Manual) 10 % (0-0) Monocytes % 1 % (0-10) Eosinophils % 4 % (0-5) Blast Cells % (Manual) 1 % (0-0) Platelet Estimate Adequate (ADEQUATE) Erythrocyte Sedimentation Rate 13 (0-25) Sodium Level 142 mmol/L (136-145) Potassium Level 3.8 mmol/L (3.5-5.1) Chloride Level 106 mmol/L (98-107) Carbon Dioxide Level 27 mmol/L (21-32) Anion Gap 9 (6-14) Blood Urea Nitrogen 16 mg/dL (7-20) Creatinine 0.8 mg/dL (0.6-1.0) Estimated GFR (Cockcroft-Gault) 73.9 BUN/Creatinine Ratio 20 (6-20) Glucose Level 101 mg/dL (70-99) Calcium Level 8.8 mg/dL (8.5-10.1) Total Bilirubin 0.3 mg/dL (0.2-1.0) Aspartate Amino Transf (AST/SGOT) 20 U/L (15-37) Alanine Aminotransferase (ALT/SGPT) 31 U/L (14-59) Alkaline Phosphatase 162 U/L (46-116) C-Reactive Protein High Sensitivity 3.68 mg/L (0.00-3.00) Total Protein 7.3 g/dL (6.4-8.2) Albumin 3.7 g/dL (3.4-5.0) Albumin/Globulin Ratio 1.0 (1.0-1.7) Phenytoin (Dilantin) Level 7.5 mcg/mL (10.0-20.0) 4.8 mcg/mL (10.0-20.0) Phenytoin Last Dose Date 04/23/17 04/23/17 Phenytoin Last Dose Time 0900 1000 Prothrombin Time 12.8 SEC (11.7-14.0) Prothromb Time International Ratio 1.0 (0.8-1.1) Activated Partial Thromboplast Time 29 SEC (24-38) Urine Opiates Screen Pos (NEG) Urine Methadone Screen Neg (NEG) Urine Barbiturates Neg (NEG) Urine Phencyclidine Screen Neg (NEG) Urine Amphetamine/Methamphetamine Neg (NEG) Urine Benzodiazepines Screen Neg (NEG) Urine Cocaine Screen Neg (NEG) Urine Cannabinoids Screen Neg (NEG) Urine Ethyl Alcohol Neg (NEG) Medications Current Medications Acetaminophen/ Hydrocodone Bitart (Lortab 7.5/325) 1 tab PRN Q4HRS PRN PO PAIN Last administered on 04/25/17 10:14; Start 04/22/17 at 15:30 Acetaminophen/ Hydrocodone Bitart (Lortab 7.5/325) 2 tab PRN Q4HRS PRN PO PAIN Last administered on 04/24/17 20:20; Start 04/22/17 at 15:30 Methocarbamol (Robaxin) 500 mg PRN TID PRN PO MUSCLE SPASMS Last administered on 04/23/17 16:32; Start 04/22/17 at 15:30 Atorvastatin Calcium (Lipitor) 10 mg HS PO Last administered on 04/24/17 20:19 ; Start 04/22/17 at 21:00 Celecoxib (CeleBREX) 200 mg BID PO Last administered on 04/25/17 10:15; Start 04/22/17 at 21:00 Phenytoin Sodium (Dilantin) 400 mg DAILY@1000 PO Last administered on 10:14; Start 04/23/17 at 10:00 Lidocaine/Sodium Bicarbonate (Buffered Lidocaine 1%) 20 ml STK-MED ONCE IJ ; Start 04/24/17 at 08:48; Stop 04/24/17 at 08:49; Status DC Midazolam HCl (Versed) 5 mg STK-MED ONCE .ROUTE ; Start 04/24/17 at 08:51; Stop 04/24/17 at 08:52; Status DC Fentanyl Citrate (Fentanyl 5ml Vial) 250 mcg STK-MED ONCE .ROUTE ; Start at 08:52; Stop 04/24/17 at 08:53; Status DC Flumazenil (Romazicon) 0.5 mg STK-MED ONCE IV ; Start 04/24/17 at 08:52; Stop at 08:53; Status DC Naloxone HCl (Narcan) 0.4 mg STK-MED ONCE .ROUTE ; Start 04/24/17 at 08:52; Stop 04/24/17 at 08:53; Status DC Lidocaine/Sodium Bicarbonate (Buffered Lidocaine 1%) 20 ml 1X ONCE IJ Last administered on 04/24/17 09:31; Start 04/24/17 at 09:15; Stop 04/24/17 at 09:16 ; Status DC Midazolam HCl (Versed) 5 mg 1X ONCE IV Last administered on 04/24/17 09:30; Start 04/24/17 at 09:15; Stop 04/24/17 at 09:16; Status DC Fentanyl Citrate (Fentanyl 5ml Vial) 250 mcg 1X ONCE IV Last administered on 09:31; Start 04/24/17 at 09:15; Stop 04/24/17 at 09:16; Status DC Phenytoin Sodium (Dilantin) 300 mg 1X ONCE PO ; Start 04/24/17 at 10:45; Stop 04/24/17 at 10:46; Status DC Docusate Sodium (Colace) 100 mg BID PO Last administered on 04/25/17 10:15; Start 04/24/17 at 21:00 Polyethylene Glycol (miraLAX PACKET) 17 gm DAILY PO Last administered on 13:33; Start 04/24/17 at 14:00 Phenytoin Sodium (Dilantin) 300 mg 1X ONCE PO Last administered on 04/24/17 20:18; Start 9/26/17 at 20:15; Stop 04/24/17 at 20:16; Status DC Active Scripts Active Ibuprofen 800 Mg Tablet 800 Mg PO PRN Q8HRS PRN 10 Days Reported Phenytek (Phenytoin Sodium Extended) 200 Mg Capsule 400 Mg PO DAILY10 Atorvastatin Calcium 10 Mg Tablet 10 Mg PO HS Fosamax (Alendronate Sodium) 70 Mg Tablet 1 Tab PO WEEKLY Acetaminophen 500 Mg Tablet 3 Tab PO Q4HRS Celebrex (Celecoxib) 200 Mg Capsule 200 Mg PO BID 30 Days Vitals/I & O Vital Sign - Last 24 Hours 04/24/17 04/24/17 04/24/17 04/24/17 15:00 19:00 20:20 20:20 Temp 98.8 97.9 98.8 97.9 Pulse 71 76 Resp 16 18 18 B/P (MAP) 126/69 (88) 126/78 (94) Pulse Ox 95 96 95 O2 Delivery Room Air Room Air Room Air Room Air 04/24/17 04/24/17 04/25/17 04/25/17 21:22 23:00 02:39 07:00 Temp 97.9 98.0 98.1 97.9 98.0 98.1 Pulse 70 68 77 Resp 18 19 18 B/P (MAP) 102/68 (79) 114/61 (78) 119/75 (90) Pulse Ox 99 98 98 O2 Delivery Room Air Room Air Room Air Room Air 04/25/17 04/25/17 04/25/17 08:00 11:00 12:35 Temp 97.7 97.7 Pulse 65 Resp 18 B/P (MAP) 117/69 (85) Pulse Ox 100 O2 Delivery Room Air Room Air Room Air MANOJ MONZON MD Apr 25, 2017 13:41
--- NOTE | 2017-04-25 16:59 | EEG ---
DATE OF SERVICE: 04/24/2017 ELECTROENCEPHALOGRAM NUMBER: [id number]. OBJECTIVE: This is a 57-year-old female patient with a history of seizure. She had a seizure this time. EEG was requested to evaluate the seizure activity. METHODS: Twenty electrodes were applied according to the international 10-20 electrode placement system. EKG monitoring, hyperventilation, intermittent photic stimulation, monopolar and bipolar montages are routinely utilized. The record was obtained on a digital system with video monitoring. MEDICATIONS: Dilantin. FINDINGS: 1. Background: The patient was recorded in the awake, drowsy, and sleep states. The overall background amplitude is 10-20 microvolts. A posterior dominant rhythm of 8-10 Hz is observed. 2. Abnormalities: A few spike and wave discharges from time to time, occasionally lasting for 1 second, most noticeable in the central area. No electrographic seizure is seen. 3. Activation: Hyperventilation was performed with good efforts and normal response. Intermittent photic stimulation was performed with photic driving. No electrographic seizure induced. IMPRESSION: This electroencephalogram falls into the abnormal category of the study for the awake, drowsy and brief ____ state. There are a few spike and wave discharges noted, mostly in the central area. No electrographic seizure is seen. This pattern of electroencephalogram may suggest an increased risk of seizure. KEATON DUNN MD DR: RYAN/edwin JOB#: [id number] / [id number]
--- NOTE | 2017-04-25 18:22 | PDOC ---
PROGRESS NOTES Assessment Assessment Seizure. Leukocytosis, WBC 42.6, Lymph 78% HLD Thyroiditis, Hx Obesity RECOMMENDATIONS/PLAN: Continue Dilantin 400 daily. Add 300 mg on 04/24. Check Dilantin trough level in 1 week. If has further seizure, add Depakote or Vimpat. Treat medical diseases. Consulted hematology for elevated lymph counts, and bone marrow biopsy performed on 04/24. FU with PCP. FU with Hematology. FU with Neurology in 2-4 weeks. EEG on 04/24/17: A few spike and wave discharges noted. HISTORY OF THE PRESENT ILLNESS: 57-y-old female patient with HJx of seizure since age 16. She stated that she usually had a seizure every 2 to 3 months in the past described as GTC. She was treated with Dilantin and PB for several years then discontinued medical for a while. She has been taken Dilantin as monotherapy in the past 10 years and no seizures in the past 7 years. She said she has been under a lot of emotional stress selling her house, moving etc. She had a seizure described as LOC with shaking movements and [postictal state for about 30 minutes on 04/22/17 to be brought to [facility]. No seizures since in the hospital. She stated she bit her tongue , but no loss of control of urinary bladder. No seizures since in the hospital. Past Medical History Cardiovascular: Hyperlipidemia CENTRAL NERVOUS SYSTEM: Seizure Past Surgical History right breast mass removal x3 - benign Past Surgical History: Cholecystectomy, Tubal Ligation, Hysterectomy Family History Cancer, Diabetes, HLD, Hypertension Social History Quit (2006) ALCOHOL: none Drugs: None Lives: but . Alone (but states she will be moving in with her daughter soon) ALLERGY: Reviewed. MEDICATIONS: Refer to [facility] REVIEW OF SYSTEMS: Constitutional: Obesity. Head: No traumatic brain or head injury. Skin: No edema, or rash. Ear: No infection. Eyes: No vision loss or color blindness. Nose: No bleeding or purulent discharges. Hearing: No hearing decrease. Neck: No injury. Breast: No history of cancer, masses,or discharges. Cardiac: HLD. Pulmonary: No COPD. GI: No GI ulcer, GI bleeding. Urinary/genital: UTI. Endocrinologic: Thyroiditis, obesity Skeletomuscular: No muscular atrophy, deformity Neurological: see HP. Psychiatric: Denies drug use/abuse. Otherwise, not [id number] review of systems. PHYSICAL EXAMINATION: General appearance is in no acute distress. HEENT: Normocephalic and nontraumatic. Eyes, nose, ears, and throat are unremarkable. Neck is supple. No lymphadenopathy. No bruits are heard over the carotid artery. No crepitus. Cardiovascular: S1, S2, regular rate and rhythm. Pulmonary: Clear to auscultation bilaterally. Abdomen: Bowel sounds are positive. Abdomen is soft, nontender, and nondistended. Extremities: No rash, lesions, or edema. No restriction of range of motion NEUROLOGICAL EXAMINATION: Alert Oriented to time, place and person. PERRL. EOMI. CN: no focal findings. Muscle tone: within normal. Muscle strength: 5 DTR: 2 Plantar reflex: Flexor response bilaterally Gait: not examined in bed. Sensory exam: no abnormal findings. No cerebellar signs elicited. F-T-N test accurate. Objective Objective Vital Signs Date Time Temp Pulse Resp B/P (MAP) Pulse Ox O2 Delivery O2 Flow Rate FiO2 04/25/17 12:35 Room Air 04/25/17 11:00 97.7 65 18 117/69 (85) 100 97.7 04/24/17 09:26 2.0 Vitals Signs Vitals VS - Last 72 Hours, by Label Date Time Temp Pulse Resp B/P (MAP) Pulse Ox O2 Delivery O2 Flow Rate FiO2 04/25/17 12:35 Room Air 04/25/17 11:00 97.7 65 18 117/69 (85) 100 Room Air 97.7 04/25/17 08:00 Room Air 04/25/17 07:00 98.1 77 18 119/75 (90) 98 Room Air 98.1 04/25/17 02:39 98.0 68 19 114/61 (78) 98 Room Air 98.0 04/24/17 23:00 97.9 70 18 102/68 (79) 99 Room Air 97.9 04/24/17 21:22 Room Air 04/24/17 20:20 18 95 Room Air 04/24/17 20:20 Room Air 04/24/17 19:00 97.9 76 18 126/78 (94) 96 Room Air 97.9 04/24/17 15:00 98.8 71 16 126/69 (88) 95 Room Air 98.8 04/24/17 11:15 98.1 70 16 124/73 (90) 96 Room Air 98.1 04/24/17 10:45 65 16 127/75 (92) 97 Room Air 04/24/17 10:30 66 16 112/69 (83) 94 Room Air 04/24/17 10:15 64 16 118/76 (90) 97 Room Air 04/24/17 10:00 66 16 121/67 (85) 96 Room Air 04/24/17 09:45 69 16 120/68 (85) 96 Room Air 04/24/17 09:31 14 95 Room Air 04/24/17 09:27 67 14 95 Room Air 04/24/17 09:26 66 14 98 Nasal Cannula 2.0 04/24/17 09:21 66 14 98 Nasal Cannula 2.0 04/24/17 09:17 66 14 98 Nasal Cannula 2.0 04/24/17 09:12 66 14 98 Nasal Cannula 2.0 04/24/17 09:10 67 18 98 Nasal Cannula 2.0 04/24/17 07:50 Room Air 04/24/17 07:00 98.1 76 18 136/75 (95) 94 Room Air 98.1 Medication Medications Current Medications Docusate Sodium (Colace) 100 mg BID PO Last administered on 04/25/17 10:15; Start 04/24/17 at 21:00; Stop 04/25/17 at 15:17; Status DC Phenytoin Sodium (Dilantin) 300 mg 1X ONCE PO Last administered on 04/24/17 20:18; Start 04/24/17 at 20:15; Stop 04/24/17 at 20:16; Status DC Comment Review of Relevant I have reviewed the following items danielle (where applicable) has been applied. KEATON DUNN MD Apr 25, 2017 18:22
--- NOTE | 2017-04-26 00:51 | DS ---
DATE OF DISCHARGE: 04/25/2017 ADMITTING DIAGNOSIS: Generalized seizure. SECONDARY DIAGNOSES: 1. Right hip pain. 2. Newly diagnosed chronic lymphocytic leukemia. HISTORY OF PRESENT ILLNESS AND HOSPITAL COURSE: This patient is a 57-year-old female who had a generalized seizure and had severe right hip pain to the point where she was unable to ambulate or care for herself. She was admitted to the hospital for PT and OT modalities and evaluation of new and recurrent onset seizures. During her hospitalization, the patient had a routine CBC, which showed evidence of CLL. Heme-Oncology was consulted and bone marrow biopsy was done. The patient improved to the point where she was back to baseline and was able to care for herself and ambulate. Therefore, she was discharged to home with followup with Heme-Oncology in 1-2 weeks. The patient's seizure medication was adjusted and physical therapy was begun and home health will be sent to assess safety at home and ongoing therapy needs. DISCHARGE MEDICATIONS: As follows: Lortab 7.51 q. 4 hours p.r.n. pain, #30, methocarbamol 500 mg 1 p.o. t.i.d. p.r.n. #60, Dilantin 200 mg tablets 2 tablets at bedtime with an additional 100 mg tablet at bedtime for a total of 500 at bedtime, Fosamax 70 mg weekly, atorvastatin 10 mg daily, Celebrex 200 mg b.i.d. and MiraLax 17 grams in H2O daily. DISCHARGE FOLLOWUP: The patient will follow up in Clinic with Dr. Valdes in 1-2 weeks and obtain home health services. DEBBIE DUBOIS MD DR: SHE/edwin JOB#: [id number] / [id number]
--- NOTE | 2017-04-26 22:36 | PATHOLOGY ---
PATHOLOGY REPORT * * * * * * * * FINAL DIAGNOSIS: Bone marrow aspirate, biopsy, cell clot and peripheral blood: - Peripheral blood with chronic lymphocytic leukemia/small lymphocytic lymphoma. - Hypercellular bone marrow with interstitial involvement by chronic lymphocytic leukemia/small lymphocytic lymphoma (60-70% involvement) by immunohistochemical staining (see comment). COMMENT: Overall the bone marrow is hypercellular for the patient's age with trilineage hematopoiesis and interstitial involvement by chronic lymphocytic leukemia / small lymphocytic lymphoma. There is approximately 60-70% involvement by immunohistochemical staining. Dyspoiesis is minimal and does not meet the morphologic criteria for myelodysplasia. Correlation with clinical history and additional laboratory data and cytogenics is recommended. (CLW:adenike; 04/26/2017) REPORT ELECTRONICALLY SIGNED BY: Tran Ugarte M.D. DATE/TIME: 04/26/2017 22:35 * * * * * * * * MICROSCOPIC DESCRIPTION: CBC Data (04/24/17): WBC 46,300 /uL, RBC 4.58, hemoglobin 13.8 g/dL, hematocrit 41.9%, MCV 92 fL, MCH 30 pg, MCHC 33 g/dL, RDW 14.4%, and platelet count 198,000 /uL. White blood cell differential: segs 12%, lymphs 84%, monos 3%, eos 2%. Peripheral Blood Smear: Cytomorphological examination of the Cr's stained peripheral blood smear confirms the provided data. Red blood cells are normocytic and are without significant anisopoikilocytosis. White blood cells are markedly increased in number. They are predominantly lymphocytes that are small, round and mature appearing with condensed chromatin and slight cytoplasm. No significant large lymphoid (prolymphocyte) component is identified. Smudge cells are seen. Rare granulocytes are without significant dyspoiesis or significant left shift. Monocytes are mature. Platelets are adequate in number and mainly normal in morphology with rare larger platelets noted. Aspirate Smears: Cytomorphological examination of the Cr's stained aspirate smears show hypercellular spicules present. The overall cellularity is approximately 80%. The myeloid to erythroid ratio (apart from the lymphocytes) is approximately 2:1. Full myeloid maturation is identified and is without significant dyspoiesis. Erythroid maturation is mildly dyserythropoietic. Megakaryocytes are proportional in number and both normal and abnormal in morphology with variable sizes in nuclear abnormalities. In a 500-cell differential there are less than 1% blasts (no Daniel rods seen), 16% more differentiated myeloids, 10% erythroid progenitors, and 74% lymphocytes. The markedly increased lymphocytes are predominantly small, round and mature appearing with condensed chromatin and scant cytoplasm. Lymphoid aggregates are noted. Rare plasma cells are without atypia. Iron stain of the aspirate smear shows 4/1+ iron positivity with spicules present. No ringed sideroblasts are identified. Core Biopsy and Cell Clot: The decalcified bone marrow core biopsy is adequate. The bone marrow is hypercellular with an overall cellularity of approximately 70%. There is a diffuse interstitial lymphoid infiltrate composed of predominantly small, round mature appearing lymphocytes with condensed chromatin and scant cytoplasm. Apart from the lymphocytes, the myeloid to erythroid ratio is approximately 1-2:1. Myeloid and erythroid maturation without significant dyspoiesis. Megakaryocytes are normal in number and both normal and abnormal in morphology. Lymphoid aggregates are also noted. Bony trabeculae and blood vessels are unremarkable. The cell clot has spicules present that are similar in cellularity and differential morphology as previously described. Iron stain of the cell clot (Block B1) shows 1/4+ iron positivity with spicules present. To confirm the flow cytometry findings and to identify cells in a tissue architectural context, properly controlled immunohistochemical stains are performed. Block A1 PAX-5highlights approximately 60% neoplastic B cells. UY1oywohtvike admixed T cells. Cyclin D1no B cell coexpression. Ki-67Proliferative index of approximately 10% within B cells. Block B1 PAX-5highlights approximately 70% neoplastic B cells. AL1jhwweeadpu admixed T cells. Cyclin D1no B cell coexpression. Ki-67Proliferative index of approximately 10-20% within B cells. Flow cytometric immunophenotypic analysis was performed at [facility]. The diagnosis is "CD5 positive monoclonal B cell population. No definitive immunophenotypic evidence of a high-grade hematopoietic neoplasia or a plasma cell neoplasm." The abnormal cells are 69% predominantly kappa monoclonal B cells that are CD5 positive, CD19 positive, CD20 positive (moderate), CD23 positive, CD45 positive, kappa positive (dim/moderate); negative for CD10, CD11c, CD34 and CD38 (0.4%). There are 75.4% lymphocytes. Of the lymphocytes, there are 7% T cells with a CD4/CD8 ratio of 1.9 and no aberrant T-cell antigen expression. There are 0.7% CD34 positive cells (blasts). The immunophenotype of these monoclonal B cells is compatible with chronic lymphocytic leukemia/small lymphocytic lymphoma (CLL/SLL). Please see separate flow cytometry report from [facility] ([id number]). Cytogenetics: Cytogenetic chromosomal analysis is pending at [facility] ([id number]). (CLW:adenike; 04/26/2017) GROSS PATHOLOGY: A. Received in formalin labeled "Azra Dowell," are three needle cores of masters bone, ranging from 0.2 to 10.8 cm in length and 0.2 cm in diameter. The specimen is submitted entirely in cassette A1, following decalcification. B. Received in formalin labeled "Azra Dowell," is blood coagulum, measuring 0.8 x 0.5 x 0.3 cm in aggregate dimensions. The specimen is submitted entirely in cassette B1. ([facility]; 04/24/17) INITIAL CPT CODE(S): A; 59404, 69891, 69973, 28520, 51392, 40232 B; 87987, 78518, 87488, 60936, 23299, 00015 C; 83914, 89633 D; 56955 Professional services performed by [facility] at [place] [address], [place] [address] Technical services performed by [facility] at [address] [place] [address], [facility] [address] [address]. SPECIMEN(S) RECEIVED: A.Bone marrow, biopsy B.Bone marrow, clot and/or particle prep C.Bone marrow, aspirate smears D.Peripheral smear CLINICAL HISTORY: Leukocytosis. A 57-year-old woman with leukocytosis/absolute lymphocytosis. PATIENT: AZRA DOWELL /AGE: 702/05/1960 (Age: 57) PATIENT #: [id number] ALT CASE #: SPECIMEN COLLECTION DATE: 04/24/2017 SPECIMEN RECEIVED DATE: 04/24/2017 [facility] - [address] [place] [address] - PHONE: [phone] * * * END OF REPORT * * *
== END 2017-04-25 15:16 | disposition home or self-care (01) | DRG 842 ==
LOC: 4 NORTH 14:32
PROVIDERS: ADMIT Family Medicine; ATTEND Family Medicine
PROC: 07DR3ZX Extraction of Iliac Bone Marrow, Percutaneous Approach, Diagnostic (ICD-10-PCS; principal; 2017-04-24)
DX: C91.10 Chronic lymphocytic leukemia of B-cell type not having achieved remission (principal); E05.00 Thyrotoxicosis with diffuse goiter without thyrotoxic crisis or storm; S76.011A Strain of muscle, fascia and tendon of right hip, initial encounter; S33.9XXA Sprain of unspecified parts of lumbar spine and pelvis, initial encounter; S39.012A Strain of muscle, fascia and tendon of lower back, initial encounter; S70.01XA Contusion of right hip, initial encounter; G40.909 Epilepsy, unspecified, not intractable, without status epilepticus; E06.9 Thyroiditis, unspecified; G51.0 Bell's palsy; M85.80 Other specified disorders of bone density and structure, unspecified site; X58.XXXA Exposure to other specified factors, initial encounter; E78.5 Hyperlipidemia, unspecified; E66.9 Obesity, unspecified; Z68.29 Body mass index [BMI] 29.0-29.9, adult; Z80.42 Family history of malignant neoplasm of prostate; Z82.49 Family history of ischemic heart disease and other diseases of the circulatory system; Z87.891 Personal history of nicotine dependence; Z83.3 Family history of diabetes mellitus; Z90.49 Acquired absence of other specified parts of digestive tract; Z98.51 Tubal ligation status; Z90.710 Acquired absence of both cervix and uterus; Y93.89 Activity, other specified; Y92.89 Other specified places as the place of occurrence of the external cause; Y99.8 Other external cause status
CPT/HCPCS: 36415; 38221; 77012; 80053; 80185; 80307; 85007; 85025; 85610; 85651; 85730; 86141; 88184; 88185; 88237; 95816; 99152; 99153; G0364; J2250; J3010; 97116; G0479

== ENCOUNTER → 2017-12-18 | Outpatient (CLI) | payer OTHER | END | disposition home or self-care (01) | LOC: RAD 07:39 | DX: R05 Cough (principal); E78.5 Hyperlipidemia, unspecified | CPT/HCPCS: 71046 ==

== ENCOUNTER → 2018-03-11 | Outpatient (CLI) | payer OTHER | END | disposition home or self-care (01) | LOC: KCIC MRI 11:22 | DX: M51.36 Other intervertebral disc degeneration, lumbar region (principal); M48.07 Spinal stenosis, lumbosacral region; E78.5 Hyperlipidemia, unspecified; Z87.891 Personal history of nicotine dependence; Z90.49 Acquired absence of other specified parts of digestive tract; Z90.710 Acquired absence of both cervix and uterus; Z68.29 Body mass index [BMI] 29.0-29.9, adult; Z82.49 Family history of ischemic heart disease and other diseases of the circulatory system; Z80.42 Family history of malignant neoplasm of prostate; Z83.3 Family history of diabetes mellitus | CPT/HCPCS: 72148 ==

== ENCOUNTER → 2018-05-28 | Outpatient (CLI) | payer OTHER ==
[~2018-05-28] MED LIST changes: +ACET500T68 PO; +ALEN70TA3 PO; +ATOR10TA60 PO; +CELE200C PO; +HYDR-2762 PO; +METH500T7 PO; +PHEN100C PO; +PHEN200C PO; +POLY17PO3 PO
[2018-05-28 16:19] LABS: BASO # 0.2 x10^3/uL (0.0-0.2); BASO % 0 % (0-3); EOS # 0.8 x10^3/uL (0.0-0.7); EOS % 1 % (0-3); HEMATOCRIT 42.2 % (36.0-47.0); HEMOGLOBIN 14.2 g/dL (12.0-15.5); LYMPH # 66.3 x10^3/uL (1.0-4.8); LYMPH % 88 % (24-48); MEAN CORPUSCULAR HEMOGLOBIN 31 pg (25-35); MEAN CORPUSCULAR HGB CONC 34 g/dL (31-37); MEAN CORPUSCULAR VOLUME 91 fL (79-100); MONO # 1.4 x10^3/uL (0.0-1.1); MONO % 2 % (0-9); NEUT # 6.5 x10^3uL (1.8-7.7); NEUT % 9 % (31-73); PLATELET COUNT 188 x10^3/uL (140-400); RED BLOOD COUNT 4.64 x10^6/uL (3.50-5.40); RED CELL DISTRIBUTION WIDTH 13.7 % (11.5-14.5)
[2018-05-28 16:29] LABS: ALBUMIN 4.2 g/dL (3.4-5.0); ALBUMIN/GLOBULIN RATIO 1.2 (1.0-1.7); CALCIUM 9.1 mg/dL (8.5-10.1); CREATININE 0.9 mg/dL (0.6-1.0); GFR 64.3; TOTAL BILIRUBIN 0.3 mg/dL (0.2-1.0); TOTAL PROTEIN 7.7 g/dL (6.4-8.2)
[2018-05-28 16:35] LABS: WHITE BLOOD COUNT 75.3 x10^3/uL (4.0-11.0)
[2018-05-28 17:19] LABS: % ATYL 2 % (0-0); % LYMPHS 87 % (24-48); % MONOS 3 % (0-10); % SEGS 8 % (35-66)
[2018-05-28 17:20] LABS: PLT ESTIMATE ADEQUATE (ADEQUATE)
== END | disposition home or self-care (01) ==
LOC: LAB 15:40
PROVIDERS: ATTEND Internal Medicine Hematology & Oncology
DX: C91.90 Lymphoid leukemia, unspecified not having achieved remission (principal)
CPT/HCPCS: 36415; 80053; 85007; 85025

== ENCOUNTER 2018-10-10 09:29 | Emergency (ER) | payer OTHER ==
[~2018-10-10] VITALS: Ht 152.4 cm; Wt 80.7 kg
[~2018-10-10 09:29] MED LIST changes: -HYDR-2762 PO; +HYDR-2765 PO; +POLY17PO28 PO; -POLY17PO3 PO
[2018-10-10 10:07] VITALS: BP 129/77
--- NOTE | 2018-10-10 10:09 | PHYS DOC ---
Past Medical History Past Medical History: Seizure Past Surgical History: Cholecystectomy, Hysterectomy, Tubal ligation Alcohol Use: Rarely Drug Use: None Adult General Chief Complaint Chief Complaint: EARACHE/EAR PAIN HPI HPI Patient is a 58-year-old female who presents to the emergency department for evaluation. 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 She was put on steroids and valacyclovir , and reports that over the past few days she has had some fullness in her left ear, without any hearing changes. She has not had any fevers or chills. She denies any new vision changes, headache, or any other numbness or weakness. She has had Polk's palsy on the left side once before, about 10 years ago, but did not experience ear fullness at that time. There are no alleviating or exacerbating factors to the patient's symptoms. Review of Systems Review of Systems Constitutional: Denies fever or chills [] Eyes: Denies change in visual acuity, redness, or eye pain [] HENT: Denies nasal congestion or sore throat, reports left-sided otalgia. [] Respiratory: Denies cough or shortness of breath [] Musculoskeletal: Denies back pain or joint pain [] Integument: Denies rash or skin lesions [] Neurologic: Denies headache, focal weakness or sensory changes, except the left facial droop. [] Allergies Allergies Allergies Coded Allergies Type Severity Reaction Last Updated Verified No Known Drug Allergies 04/21/17 No Physical Exam Physical Exam PHYSICAL EXAM: CONSTITUTIONAL: Well developed, well nourished HEAD: normocephalic, atraumatic EENT: PERRL, EOMI. Conjunctivae normal color, sclerae non-icteric; moist mucous membranes. The tympanic membranes are normal bilaterally. There is no mastoid tenderness. The periauricular areas are nontender and unremarkable. NECK: Supple, non-tender; no meningismus. LUNGS: Lungs CTA, breathing even and unlabored. Normal air movement. HEART: Regular rate and rhythm, no murmur CHEST: No deformity; non-tender ABDOMEN: The abdomen is soft, and non-tender, no masses or bruits. EXTREM: Normal ROM; no deformity, no calf tenderness. Normal pulses palpable in all extremities. There is no pedal edema. SKIN: No rash; no diaphoresis NEURO: Alert; normal speech and cognition; there is a left-sided facial droop involving both the lower and upper forehead, otherwise CN's grossly intact; strength grossly intact without focal deficit. BACK: No CVA TTP. EKG EKG [] Radiology/Procedures Radiology/Procedures [] Course & Med Decision Making Course & Med Decision Making I discussed the diagnosis with the patient, the use of [id number] analgesics, the need for close follow-up, and return precautions. Dragon Disclaimer Dragon Disclaimer This electronic medical record was generated, in whole or in part, using a voice recognition dictation system. Departure Departure Impression: Primary Impression: Polk's palsy Additional Impression: Otalgia Disposition: 01 HOME, SELF-CARE Condition: STABLE Referrals: MARIELA WHALEY MD (PCP) Patient Instructions: Polk's Palsy, Otalgia Problem Qualifiers TATIANNA HERR MD Oct 10, 2018 10:09
== END 2018-10-10 10:17 | disposition home or self-care (01) ==
LOC: ER 09:29
DX: G51.0 Bell's palsy (principal); H92.02 Otalgia, left ear; Z90.49 Acquired absence of other specified parts of digestive tract; Z90.710 Acquired absence of both cervix and uterus; Z98.51 Tubal ligation status
CPT/HCPCS: 99281